=== PATIENT | male | born 1950 | race Native Hawaiian/Other Pacific Islander ===

== ENCOUNTER 2019-02-02 10:53 | Inpatient (IN) ==
--- NOTE | 2019-02-02 11:30 | Emergency Department Note ---
Wound/Laceration HPI - General Chief Complaint: Wound/Laceration Stated Complaint: left foot wound, right foot wound, poss. gangrene Time Seen by Provider: 02/02/19 11:04 Source: patient Mode of arrival: wheelchair Limitations: no limitations - History of Present Illness HPI Narrative: Patient's [id number], his care provider, states that today he has been having some increased weakness he has been unable to get out of his wheelchair bed where he normally is able to help with the transfers. He was seen in wound care with some low blood pressures was referred over by Dr. Holliday for evaluation. Patient states he has been having some increased weakness over the past several days. There are no localizing signs. Denies any chest pain denies shortness of breath he is not having any orthopnea but states there is been some weight gain and some increased edema to his lower extremities. He does have a history of peripheral vascular disease and has just recently stopped smoking has a [id number] history of tobacco. He has been seen in wound care on a weekly basis and his left great toe has black and bluish discolorations.. Current tempe rature is 96.1 her pulse is 68 respirations are 18 blood pressure 111/74 pulse ox is 97% rates the pain is an 10 - Related Data Home Medications Medication Instructions Recorded Confirmed Aspirin [Daja Chewable Aspirin] 81 mg PO DAILY 10/23/18 12/24/18 Atorvastatin [Lipitor] 40 mg PO BID 10/23/18 12/24/18 Digoxin [Lanoxin] 125 mcg PO DAILY 10/23/18 12/24/18 Furosemide [Lasix] 20 mg PO DAILY 10/23/18 12/24/18 Furosemide [Lasix] 40 mg PO DAILY 10/23/18 12/24/18 Levothyroxine [Synthroid] 50 mcg PO DAILY 10/23/18 12/24/18 Lisinopril [Zestril] 2.5 mg PO DAILY 10/23/18 12/24/18 Melatonin [Melatonin 3Mg Tablet] 3 mg PO DAILY 10/23/18 12/24/18 Metoprolol Succinate [Toprol Xl] 25 mg PO BID 10/23/18 12/24/18 Metoprolol Tartrate [Lopressor] 12.5 mg PO BID 10/23/18 12/24/18 Mirtazapine 0.5 tablet PO DAILY 10/23/18 12/24/18 Sennosides/Docusate Sodium [Senna 1 tablet PO DAILY 10/23/18 12/24/18 Plus Tablet] Spironolactone [Aldactone] 25 mg PO DAILY 10/23/18 12/24/18 metFORMIN [Glucophage] 500 mg PO BID 10/23/18 12/24/18 Clopidogrel Bisulfate [Plavix] 75 mg PO DAILY 12/10/18 12/24/18 Dabigatran Etexilate Mesylate 150 mg PO BID 12/10/18 12/24/18 [Pradaxa] Previous Rx's Medication Instructions Recorded Polyethylene Glycol 3350 [Miralax] 17 gm PO DAILY #30 packet 10/27/18 oxyCODONE/APAP [Percocet 5-325 mg] 1 tab PO Q6HP PRN #30 tab 01/01/19 Allergies Allergy/AdvReac Type Severity Reaction Status Date / Time No Known Drug Allergies Allergy Verified 02/02/19 10:57 Review of Systems All systems ED: reviewed and negative except as stated. Constitutional: Denies: fever, chills Cardiovascular: Reports: dyspnea on exertion. Denies: chest pain, palpitations Respiratory: Reports: shortness of breath. Denies: cough Gastrointestinal: Denies: abdominal pain, nausea Genitourinary: Denies: dysuria, frequency, urgency Musculoskeletal: Denies: back pain, joint swelling Integumentary: Denies: rash Neurological: Denies: headache Psychiatric: Denies: anxiety Endocrine: Denies: fatigue Hematological/Lymphatic: Denies: easy bleeding Allergic/Immunologic: Denies: facial swelling Past Medical History - Past Medical History [facility] Narrative: All Active Problems Hyperglycemia due to type 2 diabetes mellitus (Acute) Fecal impaction in rectum (Acute) Constipation (Acute) Knee effusion, right (Acute) Skin graft (allograft) (autograft) failure (Acute) Complication of skin graft (Acute) Bleeding from wound (Acute) Medical history: Reports: CVA, DM Surgical history ED: Reports: pacemaker/AICD, other (Stent in right leg Dr. Piedra 1 year ago) - Social History smoking status: Former smoker Alcohol use: Reports: None Drug use: Reports: none Physical Exam Limitations: no limitations General appearance: alert, anxious Head: atraumatic, normocephalic Eye: Present: normal appearance, PERRL ENT: normal exam, normal oropharynx, mucous membranes moist Neck: Present: normal inspection, full ROM. Absent: trachea midline Chest: Present: normal inspection. Absent: symmetric chest wall rise, tenderness Respiratory: Present: normal lung sounds bilaterally. Absent: respiratory distress, rales/crackles Cardiovascular: Present: regular rate, normal rhythm. Absent: bradycardia, tachycardia Abdominal: Present: soft. Absent: distention Extremities: Present: pedal edema, other (Black and bluish discoloration of the right great toe) Hip/Pelvis: Present: normal inspection, full ROM Upper leg: Present: normal inspection, full ROM Knee: Present: normal inspection, full ROM Lower leg: Present: ecchymosis, other (Scars from previous wounds ) Ankle: Present: normal inspection, full ROM Foot/toe: Present: tenderness, ecchymosis (Right great toe) Course Vital Signs Temperature 96.1 F L 02/02/19 10:53 Pulse Rate 68 02/02/19 10:53 Respiratory Rate 18 02/02/19 10:53 Blood Pressure 111/74 02/02/19 10:53 Pulse Oximetry (%) 97 02/02/19 10:53 Temperature 96.1 F L 02/02/19 10:53 Pulse Rate 67 02/02/19 14:30 Respiratory Rate 19 02/02/19 15:00 Blood Pressure 74/46 02/02/19 15:00 Pulse Oximetry (%) 100 02/02/19 15:00 Wound/Laceration - [facility] Narrative Medical decision making narrative: White counts 10,800 hemoglobin 10.5 hematocrit 38.876 6 bands and 17 lymphocytes lactic acid elevated at 2.2 BUN was elevated at 42 with a creatinine 1.5 the potassium is 6.21 was 0.1 and the BNP is 29,000 687. Patient consulted with Dr. Cortés on patient to be admitted. We have started him on vancomycin his proBNP was markedly elevated at 29,000 - Lab Data Result diagrams: 02/02/19 13:13 02/02/19 13:13 Lab Results 02/02/19 02/02/19 02/02/19 Range/Units 13:13 13:13 13:13 WBC 10.8 (4.5-11.0) K/mcL RBC 4.03 L (4.50-5.90) M/mcL Hgb 10.5 L (13.5-16.5) g/dL Hct 32.8 L (41.0-55.0) % MCV 81.4 (80.0-100.0) fL MCH 26.1 (26.0-34.0) pg MCHC 32.0 (31.0-36.0) g/dL RDW 21.2 H (11.5-14.5) % Plt Count 411 (140-440) K/mcL MPV 9.7 (7.4-10.4) fL Total Counted 100 Seg Neutrophils % 70 (38-78) % Band Neutrophils % 6 (0-10) % Lymphocytes % 17 (15-49) % Monocytes % (Manual) 7 (1-12) % Nucleated RBCs 1 H (0-0) % Platelet Estimate Normal (NORMAL) RBC Morphology Abnormal (NORMAL) Polychromasia 1+ A (NONE SEEN) Poikilocytosis 2+ A (NONE SEEN) Anisocytosis 2+ A (NONE SEEN) Acanthocytes (Spur) 4+ A (NONE SEEN) RBC Fragments 2+ A (NONE SEEN) VBG Lactic Acid 2.2 H (0.5-2.0) mmol/L Sodium 130 L (133-145) mmol/L Potassium 6.2 H* (3.3-5.1) mmol/L Chloride 97 (96-108) mmol/L Carbon Dioxide 20 L (22-30) mmol/L Anion Gap 13.0 (8-16) BUN 42 H (8-23) mg/dl Creatinine 1.5 H (0.7-1.2) mg/dl GFR Calculation 47 Glucose 107 H (70-105) mg/dL Calcium 8.5 L (8.6-10.4) mg/dl Total Bilirubin 1.7 H (0.0-1.0) mg/dL AST 51 H (0-37) U/l ALT 223 H (0-40) U/l Alkaline Phosphatase 93 (39-117) U/L Total Creatine Kinase 72 (24-195) IU/L CK-MB (CK-2) 3.4 (0-4.9) ng/ml Myoglobin 72 (28-72) ng/ml Troponin T (0-0.03) ng/ml NT-Pro-B Natriuret Pep (0-125) pg/ml Total Protein 6.2 (5.9-8.4) gm/dL Albumin 2.9 L (3.2-5.2) gm/dL Globulin 3.3 (2.2-3.7) gm/dL Albumin/Globulin Ratio 0.9 L (1.0-2.3) Procalcitonin (<0.10) ng/mL Urine Color Urine Appearance Urine pH (5.0-9.0) Ur Specific Roberts (1.000-1.035) Urine Protein (NEG) mg/dL Urine Glucose (UA) (NEG) mg/dL Urine Ketones (NEG) mg/dL Urine Occult Blood (<0.03) mg/dL Urine Nitrate (NEG) Urine Bilirubin (NEG) mg/dL Urine Urobilinogen (NEG) mg/dL Ur Leukocyte Esterase (NEG) /uL Urine RBC (0-1) /hpf Urine WBC (0-4) /hpf Ur Squamous Epith Cells (0-4) /hpf Amorphous Crystals (0) /hpf Urine Bacteria (0) /hpf Hyaline Casts (0-2) /lpf Granular Casts (0) /lpf Ur Culture Indicated? 02/02/19 02/02/19 02/02/19 Range/Units 13:13 13:13 13:13 WBC (4.5-11.0) K/mcL RBC (4.50-5.90) M/mcL Hgb (13.5-16.5) g/dL Hct (41.0-55.0) % MCV (80.0-100.0) fL MCH (26.0-34.0) pg MCHC (31.0-36.0) g/dL RDW (11.5-14.5) % Plt Count (140-440) K/mcL MPV (7.4-10.4) fL Total Counted Seg Neutrophils % (38-78) % Band Neutrophils % (0-10) % Lymphocytes % (15-49) % Monocytes % (Manual) (1-12) % Nucleated RBCs (0-0) % Platelet Estimate (NORMAL) RBC Morphology (NORMAL) Polychromasia (NONE SEEN) Poikilocytosis (NONE SEEN) Anisocytosis (NONE SEEN) Acanthocytes (Spur) (NONE SEEN) RBC Fragments (NONE SEEN) VBG Lactic Acid (0.5-2.0) mmol/L Sodium (133-145) mmol/L Potassium (3.3-5.1) mmol/L Chloride (96-108) mmol/L Carbon Dioxide (22-30) mmol/L Anion Gap (8-16) BUN (8-23) mg/dl Creatinine (0.7-1.2) mg/dl GFR Calculation Glucose (70-105) mg/dL Calcium (8.6-10.4) mg/dl Total Bilirubin (0.0-1.0) mg/dL AST (0-37) U/l ALT (0-40) U/l Alkaline Phosphatase (39-117) U/L Total Creatine Kinase (24-195) IU/L CK-MB (CK-2) (0-4.9) ng/ml Myoglobin (28-72) ng/ml Troponin T 0.10 H* (0-0.03) ng/ml NT-Pro-B Natriuret Pep (0-125) pg/ml Total Protein (5.9-8.4) gm/dL Albumin (3.2-5.2) gm/dL Globulin (2.2-3.7) gm/dL Albumin/Globulin Ratio (1.0-2.3) Procalcitonin 0.21 (<0.10) ng/mL Urine Color Yellow Urine Appearance Clear Urine pH 5.0 (5.0-9.0) Ur Specific Roberts 1.023 (1.000-1.035) Urine Protein Neg (NEG) mg/dL Urine Glucose (UA) Negative (NEG) mg/dL Urine Ketones Neg (NEG) mg/dL Urine Occult Blood Neg (<0.03) mg/dL Urine Nitrate Neg (NEG) Urine Bilirubin Neg (NEG) mg/dL Urine Urobilinogen 4.0 A (NEG) mg/dL Ur Leukocyte Esterase Neg (NEG) /uL Urine RBC 2 H (0-1) /hpf Urine WBC 3 (0-4) /hpf Ur Squamous Epith Cells 1 (0-4) /hpf Amorphous Crystals Few A (0) /hpf Urine Bacteria 0 (0) /hpf Hyaline Casts 66 H (0-2) /lpf Granular Casts 12 H (0) /lpf Ur Culture Indicated? No 02/02/19 Range/Units 13:38 WBC (4.5-11.0) K/mcL RBC (4.50-5.90) M/mcL Hgb (13.5-16.5) g/dL Hct (41.0-55.0) % MCV (80.0-100.0) fL MCH (26.0-34.0) pg MCHC (31.0-36.0) g/dL RDW (11.5-14.5) % Plt Count (140-440) K/mcL MPV (7.4-10.4) fL Total Counted Seg Neutrophils % (38-78) % Band Neutrophils % (0-10) % Lymphocytes % (15-49) % Monocytes % (Manual) (1-12) % Nucleated RBCs (0-0) % Platelet Estimate (NORMAL) RBC Morphology (NORMAL) Polychromasia (NONE SEEN) Poikilocytosis (NONE SEEN) Anisocytosis (NONE SEEN) Acanthocytes (Spur) (NONE SEEN) RBC Fragments (NONE SEEN) VBG Lactic Acid (0.5-2.0) mmol/L Sodium (133-145) mmol/L Potassium (3.3-5.1) mmol/L Chloride (96-108) mmol/L Carbon Dioxide (22-30) mmol/L Anion Gap (8-16) BUN (8-23) mg/dl Creatinine (0.7-1.2) mg/dl GFR Calculation Glucose (70-105) mg/dL Calcium (8.6-10.4) mg/dl Total Bilirubin (0.0-1.0) mg/dL AST (0-37) U/l ALT (0-40) U/l Alkaline Phosphatase (39-117) U/L Total Creatine Kinase (24-195) IU/L CK-MB (CK-2) 3.5 (0-4.9) ng/ml Myoglobin (28-72) ng/ml Troponin T (0-0.03) ng/ml NT-Pro-B Natriuret Pep 83541.0 H (0-125) pg/ml Total Protein (5.9-8.4) gm/dL Albumin (3.2-5.2) gm/dL Globulin (2.2-3.7) gm/dL Albumin/Globulin Ratio (1.0-2.3) Procalcitonin (<0.10) ng/mL Urine Color Urine Appearance Urine pH (5.0-9.0) Ur Specific Roberts (1.000-1.035) Urine Protein (NEG) mg/dL Urine Glucose (UA) (NEG) mg/dL Urine Ketones (NEG) mg/dL Urine Occult Blood (<0.03) mg/dL Urine Nitrate (NEG) Urine Bilirubin (NEG) mg/dL Urine Urobilinogen (NEG) mg/dL Ur Leukocyte Esterase (NEG) /uL Urine RBC (0-1) /hpf Urine WBC (0-4) /hpf Ur Squamous Epith Cells (0-4) /hpf Amorphous Crystals (0) /hpf Urine Bacteria (0) /hpf Hyaline Casts (0-2) /lpf Granular Casts (0) /lpf Ur Culture Indicated? Disposition Pt seen by CLASSIFICATION ANALYST/PA only: No Clinical Impression: CHF (congestive heart failure), Sepsis associated hypotension, Renal failure Disposition: Xfer As Inpt ([facility]) Condition: Fair Referrals: Geovanna De Santiago ARNP [Primary Care Provider] -
--- NOTE | 2019-02-02 12:23 | XRay Report ---
CLINICAL INFORMATION: Shortness of breath COMPARISON: 12/10/2018 FINDINGS: Implantable cardioverter defibrillator is in satisfactory position without wire breakage. The heart is moderately enlarged - slightly increased. Mediastinum is unremarkable. Pulmonary vessels are now mildly distended and there is minimal interstitial edema. Mild airspace disease in the right base is either atypical edema or infiltrate. IMPRESSION: Mild CHF Mild right basilar airspace disease likely atypical edema or superimposed infiltrate. Consider two-view follow-up chest x-ray following diuretic trial to restudy the right base for infiltrate Interpreted and Authenticated by: Max Wright 02/02/19
--- NOTE | 2019-02-02 12:28 | XRay Report ---
CLINICAL INFORMATION: wound COMPARISON: None. FINDINGS: No radiopaque foreign body identified in the soft tissues. There is mild soft tissue swelling in the forefoot. Mild hallux valgus and metatarsus adductus deformities noted. Joint spaces are normal with alignment without arthritic change. No fracture or focal osseous abnormality. Minor ossification of the Achilles tendon insertion on the calcaneus IMPRESSION: No posttraumatic change. Chronic findings as as described Interpreted and Authenticated by: Max Wright 02/02/19
[2019-02-02] MEDS ORDERED: FUROSEMIDE 40 MG/4 ML VIAL IV ONE (12:29)
[2019-02-02 13:43] LABS: Appearance,Urine CLEAR; Bacteria,Urine 0 /hpf (0); Bilirubin,Urine NEG (NEG); Color,Urine YELLOW; Glucose,Urine (UA) NEGATIVE (NEG); Leukocyte Esterase,Urine NEG /uL (NEG); Protein,Urine NEG (NEG); Specific Gravity,Urine 1.023 (1.000-1.035); Urine Amorphous Crystals FEW /hpf (0); Urine Blood NEG mg/dL (<0.03); Urine Granular Cast 12 /lpf (0); Urine Hyaline Cast 66 /lpf (0-2); Urine RBC 2 /hpf (0-1); Urine Squamous Epithelial Cell 1 /hpf (0-4); Urine WBC 3 /hpf (0-4)
[2019-02-02 14:07] LABS: Mean Cell Volume 81.4 fL (80.0-100.0); Platelet Count 411 K/mcL (140-440); RBC 4.03 M/mcL (4.50-5.90); Red Cell Distribution Width 21.2 % (11.5-14.5)
[2019-02-02] MEDS ORDERED: 0.9 % SODIUM CHLORIDE 500 ML IV ONE (14:14)
[2019-02-02] MEDS ORDERED: VANCOMYCIN 1,000 MG in 0.9 % SODIUM CHLORIDE 250 ML IV ONE (14:28)
[2019-02-02 14:33] LABS: ALT/SGPT 223 U/l (0-40); Albumin 2.9 gm/dL (3.2-5.2); Albumin/Globulin Ratio 0.9 (1.0-2.3); Alkaline Phosphatase 93 U/L (39-117); Blood Urea Nitrogen 42 mg/dl (8-23); Creatine Kinase 72 IU/L (24-195); Creatine Kinase MB 3.4 ng/ml (0-4.9); Myoglobin 72 ng/ml (28-72)
[2019-02-02 14:46] LABS: Anisocytosis 2+ (NONE SEEN); Band Neutrophils % 6 % (0-10); Lymphocytes % 17 % (15-49); Monocytes % (Manual) 7 % (1-12); Platelet Estimate NORMAL (NORMAL); RBC Morphology ABNORMAL (NORMAL); Segmented Neutrophils % 70 % (38-78)
[2019-02-02 14:49] LABS: Creatine Kinase MB 3.5 ng/ml (0-4.9)
--- NOTE | 2019-02-02 15:11 | Internal Med History&Physical ---
Medical - H&P: [facility] Patient information: Note initiated : 02/02/19 at 3:09 pm Service Date, if different from initiated Date: [] Patient: Randy Ramirez a 69 y/o M admitted on for left foot wound, right foot wound, poss. gangrene. Chief Complaint: [] Chief complaint: Weakness, Left big toe gangrene History of present illness: Mr. Ramirez is a 69 year old M with a history of atrial fibrillation/PVD /CVA/chronic kidney disease and insulin-dependent diabetes and chronic lower extremity wounds wheelchair dependent presents to the ER with his [id number] and brother with worsening pain and right big toe gangrenous changes. He has been following up with wound care for bilateral lower extremity wounds secondary to diabetes and PVD. During today's evaluation with concerns of low blood pressure and gangrenous change left great toe/sepsis he was directed from wound care for further evaluation. Patient underwent left great toenail removal at wound care clinic last week. Following procedure patient endorses that left toe has been turning purple with throbbing 8-10 out of 10 pain. During this time he has gotten progressively more weak fatigued and unable to function. He denies recent changes in medications. Initial workup in the ER was consistent with blood pressure on 70's, consistent with cardiogenic shock with pulmonary edema on chest imaging. Patient was s tarted on antibiotic coverage/diuretics however due to drop in blood pressure he was started on dobutamine. Subsequently hospitalist service was consulted. Initial EKG was unremarkable, stat troponin 0.10. Patient denies active chest pain At the time evaluation patient is alert oriented. He is able to answer most questions. Denies chest pain diaphoresis. He endorsed a history as above Review of systems 10 point review systems was performed and is negative except for what is discussed above Medical - H&P: PMH Medical history: NYHA class III systolic heart failure with last EF 30% as of December 2018 History of peripheral vascular disease DM type II History of CVA hypertension Hyperlipidemia AICD Anxiety disorder Lower extremity diabetic/peripheral vascular foot wounds Chronic pain COPD Anticoagulation Hypothyroidism Surgical history: Back surgery Right knee replacement AICD placement Pertinent family history: Coronary artery disease mother Hypertension both parents Chronic kidney disease Parents Rheumatoid arthritis mother Social history: quit smoking 30 yrs ago History of alcoholism Medical - H&P: Meds Home Medications Medication Instructions Recorded Confirmed Type Atorvastatin [Lipitor] 80 mg PO HS 10/23/18 02/02/19 History Digoxin [Lanoxin] 125 mcg PO DAILY 10/23/18 02/02/19 History Furosemide [Lasix] 20 mg PO DAILY 10/23/18 02/02/19 History Furosemide [Lasix] 40 mg PO DAILY 10/23/18 02/02/19 History Levothyroxine [Synthroid] 50 mcg PO DAILY 10/23/18 02/02/19 History Lisinopril [Zestril] 2.5 mg PO DAILY 10/23/18 02/02/19 History Metoprolol Succinate [Toprol Xl] 25 mg PO DAILY 10/23/18 02/02/19 History Mirtazapine 7.5 mg PO HS 10/23/18 02/02/19 History metFORMIN [Glucophage] 500 mg PO BID 10/23/18 02/02/19 History Polyethylene Glycol 3350 [Miralax] 17 gm PO DAILY #30 packet 10/27/18 02/02/19 Rx Clopidogrel Bisulfate [Plavix] 75 mg PO DAILY 12/10/18 02/02/19 History Dabigatran Etexilate Mesylate 150 mg PO BID 12/10/18 02/02/19 History [Pradaxa] oxyCODONE/APAP [Percocet 5-325 mg] 1 tab PO Q6HP PRN #30 tab 01/01/19 02/02/19 Rx Albuterol Sulfate [Ventolin] 2 puff INH Q4HP PRN 02/02/19 02/02/19 History Lubiprostone [Amitiza] 8 mcg PO BID 02/02/19 02/02/19 History Oxandrolone 10 mg PO DAILY 02/02/19 02/02/19 History Allergies Allergy/AdvReac Type Severity Reaction Status Date / Time No Known Drug Allergies Allergy Verified 02/02/19 10:57 Medical - H&P: Exam - Constitutional Vitals: Temp Pulse Resp BP Pulse Ox 96.1 F L 67 19 74/46 100 02/02/19 10:53 02/02/19 14:30 02/02/19 15:00 02/02/19 15:00 02/02/19 15:00 Exam: Fatigued and lethargic No anxiety Head normocephalic Oral cavity dry No ear or nose discharge IV movements symmetrical Neck no lymphadenopathy S1 and S2 irregular rhythm tachycardia Diminished breath sounds bases Abdomen soft nondistended Lower extremity bilateral cold clammy skin with loss of hair Gangrenous changes left toe/right third toe Lymphedema noted Neuro nonfocal Medical - H&P: Reslt - Labs CBC & Chem 7: 02/03/19 03:40 02/03/19 03:40 Labs: Short CBC 02/02/19 Range/Units 13:13 WBC 10.8 (4.5-11.0) K/mcL Hgb 10.5 L (13.5-16.5) g/dL Hct 32.8 L (41.0-55.0) % Plt Count 411 (140-440) K/mcL BMP 02/02/19 13:13 Sodium 130 L Potassium 6.2 H* Chloride 97 Carbon Dioxide 20 L BUN 42 H Creatinine 1.5 H Glucose 107 H Calcium 8.5 L Cardiac Enzymes 02/02/19 02/02/19 02/02/19 Range/Units 13:13 13:13 13:38 Total Creatine Kinase 72 (24-195) IU/L CK-MB (CK-2) 3.4 3.5 (0-4.9) ng/ml Troponin T 0.10 H* (0-0.03) ng/ml Liver Function 02/02/19 Range/Units 13:13 Total Bilirubin 1.7 H (0.0-1.0) mg/dL AST 51 H (0-37) U/l ALT 223 H (0-40) U/l Alkaline Phosphatase 93 (39-117) U/L Albumin 2.9 L (3.2-5.2) gm/dL Urine 02/02/19 Range/Units 13:13 Urine Color Yellow Urine Appearance Clear Urine pH 5.0 (5.0-9.0) Ur Specific Crawford 1.023 (1.000-1.035) Urine Protein Neg (NEG) mg/dL Urine Glucose (UA) Negative (NEG) mg/dL Medical - H&P: A/P (1) Heart failure, systolic, with acute decompensation Current visit: Yes Status: Acute * Cardiogenic shock with pul edema-last EF 30%. No AMI. Start dobutamine, cont inue digoxin/aggressive diuresis. Troponin 0.10, EKG no acute changes. * Left Great toe gangrene/Cellulitis-wound care/podiatry consult, Abx * Acute on chronic kidney disease-creatinine 1.5 * History of PVD/CAD continue Plavix/statin/digoxin/beta kaleb/YULISSA inhibitor(hold in light of shock) * Hypothyroidism continue thyroxine * History of hypertension-keep meds on hold until shock resolved * Chronic pain on oxycodone * History of COPD continue bronchodilators * Full code Plan * ICU admit for cardiogenic shock * Dobutamine/pressors if indicated/diuresis * Wound care consult * Central venous access Total time spent over 110 minutes including 70 minutes on history and physical an additional 40 minutes critical care time on management of cardiogenic shock
[2019-02-02] MEDS ORDERED: 0.9 % SODIUM CHLORIDE 250 ML IV ONE (15:18)
[2019-02-02] MEDS ORDERED: MAGNESIUM SULFATE 2 GM/50 ML BAG IV PRN (15:45)
[2019-02-02] MEDS ORDERED: VANCOMYCIN PER PHARMACY IV SCH (15:45)
[2019-02-02] MEDS ORDERED: DEXTROSE 50% 50 ML VIAL IV ONE (15:45)
[2019-02-02] MEDS ORDERED: INSULIN REGULAR, HUMAN 1 UNIT/0.01 ML UNIT IV ONE (15:45)
[2019-02-02] MEDS ORDERED: ACETAMINOPHEN 325 MG TABLET PO PRN (15:45)
[2019-02-02] MEDS ORDERED: DEXTROSE 31 GM ORAL.SUSP PO PRN (15:45)
[2019-02-02] MEDS ORDERED: ONDANSETRON 4 MG/2 ML VIAL IV PRN (15:45)
[2019-02-02] MEDS ORDERED: DEXTROSE 50% 50 ML VIAL IV PRN (15:45)
[2019-02-02 16:07] LABS: C-Reactive Protein 9.1 mg/dl (0.0-0.8)
[2019-02-02 16:17] LABS: Ferritin 245.7 ng/ml (30-400)
[2019-02-02] MEDS: SODIUM POLYSTYRENE SULFONATE 15 GM/60 ML SUSPENSION PO SCH ×2 (17:05→21:27)
[2019-02-02] MEDS: PIPERACILLIN SODIUM/TAZOBACTAM 3.375 GM in DEXTROSE 5% IN WATER 50 ML IV SCH ×2 (17:06→21:27)
[2019-02-02] MEDS: INSULIN LISPRO 1 UNIT/0.01 ML UNIT SQ SCH ×2 (17:07→22:09)
[2019-02-02] MEDS: FUROSEMIDE 40 MG/4 ML VIAL IV SCH ×2 (18:13→19:29)
[2019-02-02] MEDS: VANCOMYCIN 1,500 MG in 0.9 % SODIUM CHLORIDE 500 ML IV SCH ×2 (18:13→18:50)
--- NOTE | 2019-02-02 18:48 | General Surgery Consult Note ---
History of Present Illness Patient information: Note initiated : 02/02/19 at 6:41 pm Service Date, if different from initiated Date: [] Patient: Randy Ramirez 69 y/o M admitted on 02/02/19 for left foot wound, right foot wound, poss. gangrene. Chief Complaint: [] Requesting physician: Adam Rossi (Wound Care ) History of present illness: I saw patient in ICU 120 / A along with Dr. Rossi and Nursing Staff. Admitted via ER after seen earlier in wound care clinic this morning. Patient is in CHF with cardiogenic shock and low flow state. He has chronically infected wounds of lower extremities, skin necrosis / dry gangrene LEFT great toe and open Right lateral malleolar grade 1 ulcer. There have been interval changes and new developments in his overall condition. Deteriorating wounds and clinical presentation, CHF changes needed referral to ER and for hospitalization. Medications and Allergies Home Medications Medication Instructions Recorded Confirmed Type Atorvastatin [Lipitor] 80 mg PO HS 10/23/18 02/02/19 History Digoxin [Lanoxin] 125 mcg PO DAILY 10/23/18 02/02/19 History Furosemide [Lasix] 20 mg PO DAILY 10/23/18 02/02/19 History Furosemide [Lasix] 40 mg PO DAILY 10/23/18 02/02/19 History Levothyroxine [Synthroid] 50 mcg PO DAILY 10/23/18 02/02/19 History Lisinopril [Zestril] 2.5 mg PO DAILY 10/23/18 02/02/19 History Metoprolol Succinate [Toprol Xl] 25 mg PO DAILY 10/23/18 02/02/19 History Mirtazapine 7.5 mg PO HS 10/23/18 02/02/19 History metFORMIN [Glucophage] 500 mg PO BID 10/23/18 02/02/19 History Polyethylene Glycol 3350 [Miralax] 17 gm PO DAILY #30 packet 10/27/18 02/02/19 Rx Clopidogrel Bisulfate [Plavix] 75 mg PO DAILY 12/10/18 02/02/19 History Dabigatran Etexilate Mesylate 150 mg PO BID 12/10/18 02/02/19 History [Pradaxa] oxyCODONE/APAP [Percocet 5-325 mg] 1 tab PO Q6HP PRN #30 tab 01/01/19 02/02/19 Rx Albuterol Sulfate [Ventolin] 2 puff INH Q4HP PRN 02/02/19 02/02/19 History Lubiprostone [Amitiza] 8 mcg PO BID 02/02/19 02/02/19 History Oxandrolone 10 mg PO DAILY 02/02/19 02/02/19 History Allergies Allergy/AdvReac Type Severity Reaction Status Date / Time No Known Drug Allergies Allergy Verified 02/02/19 10:57 Exam Temp Pulse Resp BP Pulse Ox 97.5 F 67 18 102/77 96 02/02/19 16:00 02/02/19 15:40 02/02/19 18:09 02/02/19 18:00 02/02/19 18:00 - General physical appearance moderate distress, other (Aches and pains all over. ) - Eyes PERRL, other (Symmetrical edematous eyelids.) - ENT normal pinna, normal nares, normal mucosa, no congestion - Head Head exam IM: Present: atraumatic, normocephalic - Neck trachea midline, no venous distension - Cardiovascular Cardiovascular exam IM: Present: irregular rhythm - Respiratory normal respiratory effort, other (Dminished air entry lung bases) - Abdomen Abdomen: Present: soft, non tender, bowel sounds - Genitourinary Present: normal penis with no external lesions, other (Lyons catheter draining clear urine) - Integumentary Present: other (Multiple grade one skin tears both fore arms. Open wound Right lateral malleolus pressure ulcer and right thigh skin graft donor site. SKin and sub cutnaneous necrosis, dry gangrene LEFT great toe, s/p toe nail debridement in past. ) - Neurologic Present: other (Moves all extremities. No localizing neurological deficits. ) - Musculoskeletal Present: other (Wheel chair bound) - Psychiatric Present: oriented to time, oriented to person, oriented to place, speech is normal, other (ANXIOUS) Results - Labs 02/03/19 03:40 02/03/19 03:40 Abnormal lab results 02/02/19 02/02/19 02/02/19 Range/Units 13:13 13:13 13:13 RBC 4.03 L (4.50-5.90) M/mcL Hgb 10.5 L (13.5-16.5) g/dL Hct 32.8 L (41.0-55.0) % RDW 21.2 H (11.5-14.5) % Nucleated RBCs 1 H (0-0) % Polychromasia 1+ A (NONE SEEN) Poikilocytosis 2+ A (NONE SEEN) Anisocytosis 2+ A (NONE SEEN) Acanthocytes (Spur) 4+ A (NONE SEEN) RBC Fragments 2+ A (NONE SEEN) VBG Lactic Acid 2.2 H (0.5-2.0) mmol/L Sodium 130 L (133-145) mmol/L Potassium 6.2 H* (3.3-5.1) mmol/L Carbon Dioxide 20 L (22-30) mmol/L BUN 42 H (8-23) mg/dl Creatinine 1.5 H (0.7-1.2) mg/dl Glucose 107 H (70-105) mg/dL Calcium 8.5 L (8.6-10.4) mg/dl Total Bilirubin 1.7 H (0.0-1.0) mg/dL AST 51 H (0-37) U/l ALT 223 H (0-40) U/l Troponin T (0-0.03) ng/ml C-Reactive Protein (0.0-0.8) mg/dl NT-Pro-B Natriuret Pep (0-125) pg/ml Albumin 2.9 L (3.2-5.2) gm/dL Albumin/Globulin Ratio 0.9 L (1.0-2.3) Urine Urobilinogen (NEG) mg/dL Urine RBC (0-1) /hpf Amorphous Crystals (0) /hpf Hyaline Casts (0-2) /lpf Granular Casts (0) /lpf 02/02/19 02/02/19 02/02/19 Range/Units 13:13 13:13 13:13 RBC (4.50-5.90) M/mcL Hgb (13.5-16.5) g/dL Hct (41.0-55.0) % RDW (11.5-14.5) % Nucleated RBCs (0-0) % Polychromasia (NONE SEEN) Poikilocytosis (NONE SEEN) Anisocytosis (NONE SEEN) Acanthocytes (Spur) (NONE SEEN) RBC Fragments (NONE SEEN) VBG Lactic Acid (0.5-2.0) mmol/L Sodium (133-145) mmol/L Potassium (3.3-5.1) mmol/L Carbon Dioxide (22-30) mmol/L BUN (8-23) mg/dl Creatinine (0.7-1.2) mg/dl Glucose (70-105) mg/dL Calcium (8.6-10.4) mg/dl Total Bilirubin (0.0-1.0) mg/dL AST (0-37) U/l ALT (0-40) U/l Troponin T 0.10 H* (0-0.03) ng/ml C-Reactive Protein 9.1 H (0.0-0.8) mg/dl NT-Pro-B Natriuret Pep (0-125) pg/ml Albumin (3.2-5.2) gm/dL Albumin/Globulin Ratio (1.0-2.3) Urine Urobilinogen 4.0 A (NEG) mg/dL Urine RBC 2 H (0-1) /hpf Amorphous Crystals Few A (0) /hpf Hyaline Casts 66 H (0-2) /lpf Granular Casts 12 H (0) /lpf 02/02/19 Range/Units 13:38 RBC (4.50-5.90) M/mcL Hgb (13.5-16.5) g/dL Hct (41.0-55.0) % RDW (11.5-14.5) % Nucleated RBCs (0-0) % Polychromasia (NONE SEEN) Poikilocytosis (NONE SEEN) Anisocytosis (NONE SEEN) Acanthocytes (Spur) (NONE SEEN) RBC Fragments (NONE SEEN) VBG Lactic Acid (0.5-2.0) mmol/L Sodium (133-145) mmol/L Potassium (3.3-5.1) mmol/L Carbon Dioxide (22-30) mmol/L BUN (8-23) mg/dl Creatinine (0.7-1.2) mg/dl Glucose (70-105) mg/dL Calcium (8.6-10.4) mg/dl Total Bilirubin (0.0-1.0) mg/dL AST (0-37) U/l ALT (0-40) U/l Troponin T (0-0.03) ng/ml C-Reactive Protein (0.0-0.8) mg/dl NT-Pro-B Natriuret Pep 96917.0 H (0-125) pg/ml Albumin (3.2-5.2) gm/dL Albumin/Globulin Ratio (1.0-2.3) Urine Urobilinogen (NEG) mg/dL Urine RBC (0-1) /hpf Amorphous Crystals (0) /hpf Hyaline Casts (0-2) /lpf Granular Casts (0) /lpf Diabetes panel 02/02/19 Range/Units 13:13 Sodium 130 L (133-145) mmol/L Potassium 6.2 H* (3.3-5.1) mmol/L Chloride 97 (96-108) mmol/L Carbon Dioxide 20 L (22-30) mmol/L BUN 42 H (8-23) mg/dl Creatinine 1.5 H (0.7-1.2) mg/dl Glucose 107 H (70-105) mg/dL Calcium 8.5 L (8.6-10.4) mg/dl AST 51 H (0-37) U/l ALT 223 H (0-40) U/l Alkaline Phosphatase 93 (39-117) U/L Total Protein 6.2 (5.9-8.4) gm/dL Albumin 2.9 L (3.2-5.2) gm/dL Calcium panel 02/02/19 Range/Units 13:13 Calcium 8.5 L (8.6-10.4) mg/dl Albumin 2.9 L (3.2-5.2) gm/dL Pituitary panel 02/02/19 Range/Units 13:13 Sodium 130 L (133-145) mmol/L Potassium 6.2 H* (3.3-5.1) mmol/L Chloride 97 (96-108) mmol/L Carbon Dioxide 20 L (22-30) mmol/L BUN 42 H (8-23) mg/dl Creatinine 1.5 H (0.7-1.2) mg/dl Glucose 107 H (70-105) mg/dL Calcium 8.5 L (8.6-10.4) mg/dl Adrenal panel 02/02/19 Range/Units 13:13 Sodium 130 L (133-145) mmol/L Potassium 6.2 H* (3.3-5.1) mmol/L Chloride 97 (96-108) mmol/L Carbon Dioxide 20 L (22-30) mmol/L BUN 42 H (8-23) mg/dl Creatinine 1.5 H (0.7-1.2) mg/dl Glucose 107 H (70-105) mg/dL Calcium 8.5 L (8.6-10.4) mg/dl Total Bilirubin 1.7 H (0.0-1.0) mg/dL AST 51 H (0-37) U/l ALT 223 H (0-40) U/l Alkaline Phosphatase 93 (39-117) U/L Total Protein 6.2 (5.9-8.4) gm/dL Albumin 2.9 L (3.2-5.2) gm/dL All other labs normal. Assessment and Plan (1) Dry gangrene See Wound Care orders. Following patient along with hospitalist. Status: Chronic Priority: Low (2) Hyperglycemia due to type 2 diabetes mellitus Status: Acute Priority: Medium Qualifiers: Diabetes mellitus superintendent container terminal insulin use: with skilled nursing use Qualified Code(s): E11.65 - Type 2 diabetes mellitus with hyperglycemia; Z79.4 - residential (current) use of insulin (3) Fecal impaction in rectum Status: Suspected Priority: Medium (4) Constipation Status: Chronic Priority: Medium Qualifiers: Constipation type: unspecified constipation type Qualified Code(s): K59.00 - Constipation, unspecified (5) Knee effusion, right Status: Chronic Priority: Low (6) Complication of skin graft Status: Acute (7) CHF (congestive heart failure) Status: Acute Priority: High Qualifiers: Heart failure type: combined systolic and diastolic Heart failure chronicity: acute on chronic Qualified Code(s): I50.43 - Acute on chronic combined systolic (congestive) and diastolic (congestive) heart failure
[2019-02-02] MEDS ORDERED: FUROSEMIDE 250 MG in 0.9 % SODIUM CHLORIDE 225 ML IV SCH (19:30)
[2019-02-02] MEDS ORDERED: 0.9 % SODIUM CHLORIDE 10 ML SYRINGE IV PRN (19:31)
--- NOTE | 2019-02-02 19:32 | XRay Report ---
CLINICAL INFORMATION: Central Line Placement COMPARISON: 02/02/2019 1122 hours FINDINGS: Moderate cardiomegaly is unchanged. Implanted cardioverter defibrillator remains in stable position. Right IJ central line tip overlies the SVC brachycephalic injunction. No complication from line placement. Pulmonary vessels show slight decrease in caliber, but remain mildly distended. No definite edema. Moderate patchy right basilar infiltrate has progressed IMPRESSION: Near complete resolution in CHF Moderate patchy right basilar infiltrate progressing New right IJ line in satisfactory position - no complication Interpreted and Authenticated by: Max Wright 02/02/19
[2019-02-02] MEDS ORDERED: ALBUTEROL SULFATE 1 PUFF INHALER INH PRN (20:02)
[2019-02-02] MEDS ORDERED: FUROSEMIDE 100 MG/10 ML VIAL IV ONE (20:28)
[2019-02-02] MEDS: SENNOSIDES/DOCUSATE SODIUM 1 TAB TABLET PO SCH (21:25)
[2019-02-02] MEDS: MIRTAZAPINE 15 MG TABLET PO SCH (21:25)
[2019-02-02] MEDS: ATORVASTATIN 20 MG TABLET PO SCH (21:25)
[2019-02-02] MEDS: DOCUSATE SODIUM 100 MG CAPSULE PO SCH (21:25)
[2019-02-02] MEDS: DABIGATRAN ETEXILATE MESYLATE 75 MG CAPSULE PO SCH (21:26)
[2019-02-02] MEDS: oxyCODONE/APAP 5/325MG TABLET PO PRN (21:26)
[2019-02-02] MEDS: 0.9 % SODIUM CHLORIDE 10 ML SYRINGE IV SCH ×2 (21:27)
[2019-02-02] MEDS: Lubiprostone [Amitiza] 8 MCG PO SCH (21:28)
[2019-02-03] MEDS: PIPERACILLIN SODIUM/TAZOBACTAM 3.375 GM in DEXTROSE 5% IN WATER 50 ML IV SCH ×5 (00:22→23:23)
[2019-02-03] MEDS: fentaNYL 100 MCG/2 ML VIAL IV PRN (00:24)
[2019-02-03] MEDS: VANCOMYCIN 1,500 MG in 0.9 % SODIUM CHLORIDE 500 ML IV SCH (01:18)
[2019-02-03] MEDS: 0.9 % SODIUM CHLORIDE 10 ML SYRINGE IV SCH ×5 (05:29→22:21)
[2019-02-03 05:41] LABS: Mean Cell Volume 81.4 fL (80.0-100.0); Mean Corpuscular HGB Conc 31.5 g/dL (31.0-36.0); Platelet Count 371 K/mcL (140-440); RBC 3.47 M/mcL (4.50-5.90); Red Cell Distribution Width 21.4 % (11.5-14.5)
[2019-02-03] MEDS: oxyCODONE/APAP 5/325MG TABLET PO PRN ×3 (06:09→20:29)
[2019-02-03 06:16] LABS: ALT/SGPT 147 U/l (0-40); Albumin 2.1 gm/dL (3.2-5.2); Albumin/Globulin Ratio 0.8 (1.0-2.3); Alkaline Phosphatase 75 U/L (39-117); Bilirubin,Direct 0.9 mg/dL (0.0-0.3); Blood Urea Nitrogen 38 mg/dl (8-23); Gamma Glutamyl Transpeptidase 49 U/L (8-61)
[2019-02-03] MEDS: DOBUTamine 250 MG in PREMIX 1 BAG IV ONE ×2 (06:58→09:52)
[2019-02-03] MEDS ORDERED: METOLAZONE 2.5 MG TABLET PO SCH (07:30)
[2019-02-03 07:49] LABS: Anisocytosis 2+ (NONE SEEN); Band Neutrophils % 4 % (0-10); Hypochromasia 1+ (NONE SEEN); Lymphocytes % 13 % (15-49); Monocytes % (Manual) 2 % (1-12); Platelet Estimate NORMAL (NORMAL); RBC Morphology ABNORM (NORMAL); Segmented Neutrophils % 81 % (38-78)
[2019-02-03] MEDS: INSULIN LISPRO 1 UNIT/0.01 ML UNIT SQ SCH ×4 (07:53→20:31)
[2019-02-03] MEDS ORDERED: FUROSEMIDE 250 MG in 0.9 % SODIUM CHLORIDE 225 ML IV PRN (08:00)
[2019-02-03] MEDS: DABIGATRAN ETEXILATE MESYLATE 75 MG CAPSULE PO SCH ×2 (09:43→20:29)
[2019-02-03] MEDS: CLOPIDOGREL 75 MG TABLET PO SCH (09:44)
[2019-02-03] MEDS: LEVOTHYROXINE 50 MCG TABLET PO SCH (09:44)
[2019-02-03] MEDS: sitaGLIPtin 100 MG TABLET PO SCH (09:44)
[2019-02-03] MEDS: MULTIVIT,THER IRON,CA,FA & MIN 1 TABLET PO SCH (09:44)
[2019-02-03] MEDS: BACITRACIN TOPICAL OINT 15 GM TUBE TOPICAL SCH ×2 (09:45→20:31)
[2019-02-03] MEDS: FUROSEMIDE 40 MG/4 ML VIAL IV SCH ×3 (09:45→22:00)
[2019-02-03] MEDS: METOPROLOL SUCCINATE 50 MG TAB.XL.24H PO SCH (09:45)
[2019-02-03] MEDS: POLYETHYLENE GLYCOL 3350 17 GM PACKET PO SCH (09:46)
[2019-02-03] MEDS: DOCUSATE SODIUM 100 MG CAPSULE PO SCH ×2 (09:46→20:28)
[2019-02-03] MEDS: Lubiprostone [Amitiza] 8 MCG PO SCH ×2 (09:47→20:31)
[2019-02-03] MEDS: OXANDROLONE 2.5 MG TABLET PO SCH (09:47)
[2019-02-03] MEDS ORDERED: VANCOMYCIN 1,500 MG in 0.9 % SODIUM CHLORIDE 500 ML IV SCH (10:00)
--- NOTE | 2019-02-03 10:04 | Procedure Note ---
Procedures - Central Line Placement Right IJ Date of Procedure: 02/03/19 Time out performed: Yes Patient placed on monitor/pulse ox: Yes MD prep: mask, sterile gown, sterile gloves, cap Central line prep: 2% Chlorhexidine scrub Local anesthesia used: lidocaine 1% Amount of anesthesia used (mls): 5 Ultrasound used for placement: Yes Central line lumen inserted: quad, 16 cm Post procedure: sutured in place, good blood return, all ports aspirated, flushed, capped, sterile dressing applied Post procedure x-ray: tip of catheter in good position, no pneumothorax seen Patient tolerated procedure: well, no complications Complications: none
--- NOTE | 2019-02-03 10:07 | Internal Med Progress Note ---
Medical - PN: Subj Patient information: Note initiated : 02/03/19 at 10:04 am Service Date, if different from initiated Date: [] Patient: Randy Ramirez a 69 y/o M admitted on 02/02/19 for left foot wound, right foot wound, poss. gangrene. Chief Complaint: [] Interval history: Mr. Ramirez is a 69 year old M with a history of atrial fibrillation/PVD /CVA/chronic kidney disease and insulin-dependent diabetes and chronic lower extremity wounds wheelchair dependent presents to the ER with his [id number] and brother with worsening pain and right big toe gangrenous changes. He has been following up with wound care for bilateral lower extremity wounds secondary to diabetes and PVD. During today's evaluation with concerns of low blood pressure and gangrenous change left great toe/sepsis he was directed from wound care for further evaluation. Patient underwent left great toenail removal at wound care clinic last week. Following procedure patient endorses that left toe has been turning purple with throbbing 8-10 out of 10 pain. During this time he has gotten progressively more weak fatigued and unable to function. He denies recent changes in medications. Initial workup in the ER was consistent with blood pressure on 70's, consistent with cardiogenic shock with pulmonary edema on chest imaging. Patient was started on antibiotic coverage/diuretics however due to drop in blood pressure he was started on dobutamine. Subsequently hospitalist service was consulted. Initial EKG was unremarkable, stat troponin 0.10. Patient denies active chest pain At the time evaluation patient is alert oriented. He is able to answer most questions. Denies chest pain diaphoresis. He endorsed a history as above 02/03- patient doing better than previous day. Did not respond to Lasix drip. Continue sequential nephron blockade with metolazone/Lasix. Continue dobutamine. Renal function improved creatinine 1.1 down from 1.5. Map at goal. Moderate bibasal infiltrates likely aspiration. Continue antibiotic coverage and Zosyn to cover for anaerobes as well as for cellulitis/gangrenous changes. Wound care on board. No family at bedside. Lymphedema improving - Constitutional Vitals: Vital Signs Temp Pulse Resp BP Pulse Ox 97.5 F 73 19 101/76 99 02/03/19 08:02 02/03/19 07:23 02/03/19 08:42 02/03/19 08:02 02/03/19 08:02 Period Temp Pulse Resp BP Sys/Jennings Pulse Ox Last 24 Hr 96.1 F-98.0 F 67-96 - 62-123/28-100 96-100 Intake and Output 02/02/19 02/03/19 02/03/19 21:59 05:59 13:59 Intake Total 8400 782 9506 Output Total 290 231 78 Balance 752 202 0581 Weight 183 lb Intake & Output: Intake & Output 02/02/19 02/03/19 02/03/19 21:59 05:59 13:59 Intake Total 0396 874 7730 Output Total 290 231 78 Balance 141 126 0122 Weight 183 lb Intake: Nourishment/Supplement quantity 360 (ml) IV 804 103 550 Sodium Chloride 0.9% 500 ml @ 500 Wide Open IV BOLUS ONE Rx#: [id number] Lasix 250 mg In Sodium Chloride 4 53 0.9% 225 ml @ 4 MG/HR 4 mls/hr IV Q24H [facility] Rx#:[id number] Zosyn 3.375 gm In Dextrose 5% 50 50 50 in Water 50 ml @ 100 mls/hr IV Q6H [facility] Rx#:[id number] Vancomycin 1,000 mg In Sodium 250 Chloride 0.9% 250 ml @ 250 mls/ hr IV ONCE ONE Rx#:[id number] Vancomycin 1,500 mg In Sodium 500 Chloride 0.9% 500 ml @ 333.3 mls/hr IV DAILY [facility] Rx#: [id number] Oral 360 650 Output: Urine Catheter Amount 290 231 78 Other: Meal Dinner Breakfast Percent of Meal Consumed 100% 75% Feeding Ability Assist with Tray Set Up Nourishment/Supplement name peaches Urine Appearance Clear Cloudy Cloudy Sediment Uretheral (Lyons) Clear Urine Color Dark Yellow Dark Jennie Tea Colored Blood Tinged Uretheral (Ylons) Dark Yellow Dark Jennie Urine Odor Normal Stool Size Copious Large Stool Color Brown Brown Stool Consistency Liquid Liquid # of times incontinent of 1 Bowels General appearance: no acute distress Exam: Alert and oriented diminished breath sounds bases Intermittent A. fib RVR Extensive ecchymosis/peripheral edema Multiple bilateral lower extremity wound/cellulitis with Left great toe gangrenous changes, right third toe ulceration Right heel ulcerated wound Medical - PN: Obj Da - Labs CBC & Chem 7: 02/03/19 03:40 02/03/19 03:40 Labs: Abnormal Lab Results 02/03/19 02/03/19 03 03:40 03:40 13:38 RBC 3.47 L Hgb 8.9 L Hct 28.2 L MCH 25.6 L RDW 21.4 H Seg Neutrophils % 81 H Lymphocytes % 13 L Nucleated RBCs RBC Morphology Abnorm A Polychromasia 1+ A Hypochromasia 1+ A Poikilocytosis Anisocytosis 2+ A Acanthocytes (Spur) 3+ A RBC Fragments 2+ A VBG Lactic Acid Sodium Potassium Carbon Dioxide 19 L BUN 38 H Creatinine Glucose Uric Acid 9.0 H Calcium 6.3 L Total Bilirubin 1.4 H Direct Bilirubin 0.9 H AST ALT 147 H Troponin T C-Reactive Protein NT-Pro-B Natriuret Pep 50334.0 H Total Protein 4.6 L Albumin 2.1 L Albumin/Globulin Ratio 0.8 L Urine Urobilinogen Urine RBC Amorphous Crystals Hyaline Casts Granular Casts 02/02/19 02/02/19 02/02/19 13:13 13:13 13:13 RBC Hgb Hct MCH RDW Seg Neutrophils % Lymphocytes % Nucleated RBCs RBC Morphology Polychromasia Hypochromasia Poikilocytosis Anisocytosis Acanthocytes (Spur) RBC Fragments VBG Lactic Acid Sodium Potassium Carbon Dioxide BUN Creatinine Glucose Uric Acid Calcium Total Bilirubin Direct Bilirubin AST ALT Troponin T 0.10 H* C-Reactive Protein 9.1 H NT-Pro-B Natriuret Pep Total Protein Albumin Albumin/Globulin Ratio Urine Urobilinogen 4.0 A Urine RBC 2 H Amorphous Crystals Few A Hyaline Casts 66 H Granular Casts 12 H 02/02/19 02/02/19 02/02/19 13:13 13:13 13:13 RBC 4.03 L Hgb 10.5 L Hct 32.8 L MCH RDW 21.2 H Seg Neutrophils % Lymphocytes % Nucleated RBCs 1 H RBC Morphology Polychromasia 1+ A Hypochromasia Poikilocytosis 2+ A Anisocytosis 2+ A Acanthocytes (Spur) 4+ A RBC Fragments 2+ A VBG Lactic Acid 2.2 H Sodium 130 L Potassium 6.2 H* Carbon Dioxide 20 L BUN 42 H Creatinine 1.5 H Glucose 107 H Uric Acid Calcium 8.5 L Total Bilirubin 1.7 H Direct Bilirubin AST 51 H ALT 223 H Troponin T C-Reactive Protein NT-Pro-B Natriuret Pep Total Protein Albumin 2.9 L Albumin/Globulin Ratio 0.9 L Urine Urobilinogen Urine RBC Amorphous Crystals Hyaline Casts Granular Casts Meds: Medications Acetaminophen (Tylenol) 650 mg PO Q4-6HP PRN PRN Reason: PAIN/FEVER > 101 Albuterol Sulfate (Ventolin) 2 puff INH Q4HP PRN PRN Reason: Bronchospasm Atorvastatin Calcium (Lipitor) 80 mg PO HS [facility] Last Admin: 02/02/19 21:25 Dose: 80 mg Documented by: Bacitracin (Bacitracin Topical Oint) 1 dose TOPICAL BID [facility] Last Admin: 02/03/19 09:45 Dose: 1 dose Documented by: Clopidogrel Bisulfate (Plavix) 75 mg PO DAILY [facility] Last Admin: 02/03/19 09:44 Dose: 75 mg Documented by: Dabigatran (Pradaxa) 150 mg PO BID [facility] Last Admin: 02/03/19 09:43 Dose: 150 mg Documented by: Dextrose (Dextrose 50%) 0 ml IV UD PRN PRN Reason: Hypoglycemia Diagnostic Test (Pha) (Accu-Chek) 1 each FS ACHS [facility] Last Admin: 02/03/19 07:53 Dose: 1 each Documented by: Digoxin (Lanoxin) 125 mcg PO DAILY@1400 [facility] Docusate Sodium (Colace) 100 mg PO BID [facility] Last Admin: 02/03/19 09:46 Dose: Not Given Documented by: Fentanyl (Sublimaze) 12.5 mcg IV Q4HP PRN PRN Reason: PAIN LEVEL > 6 Last Admin: 02/03/19 00:24 Dose: 12.5 mg Documented by: Furosemide (Lasix) 40 mg IV BIDD [facility] Last Admin: 02/03/19 09:45 Dose: 40 mg Documented by: Glucose (Insta-Glucose) 15 gm PO PRN PRN PRN Reason: Hypoglycemia Dobutamine HCl/Dextrose 250 mg (/ Premix) 250 mls @ 2.54 mls/hr IV .Q24H ONE; Protocol Stop: 02/03/19 15:16 Last Admin: 02/03/19 09:52 Dose: 0.5 mcg/kg/min, 2.54 mls/hr Documented by: Magnesium Sulfate (Magnesium Sulfate) 2 gm in 50 mls @ 50 mls/hr IV UD PRN PRN Reason: MG = or < 1.7 Last Admin: 02/03/19 07:53 Dose: 50 mls/hr Documented by: Piperacillin Sod/Tazobactam (Sod 3.375 gm/ Dextrose) 50 mls @ 100 mls/hr IV Q6H [facility] Last Infusion: 02/03/19 06:53 Dose: Infused Documented by: Furosemide 250 mg/ Sodium (Chloride) 250 mls @ 4 mls/hr IV Q24HP PRN; Protocol PRN Reason: Edema Vancomycin HCl 1,500 mg/ (Sodium Chloride) 500 mls @ 333.3 mls/hr IV Q24H [facility] Last Admin: 02/03/19 09:48 Dose: 333.3 mls/hr Documented by: Insulin Human Lispro (Humalog) 0 unit SQ ACHS [facility]; Protocol Last Admin: 02/03/19 07:53 Dose: 2 unit Documented by: Iron Carb/Multivit/Apprentice Lineman Third Step/Folic Acid (Multivitamin W/Minerals) 1 tab PO DAILY [facility] Last Admin: 02/03/19 09:44 Dose: 1 tab Documented by: Levothyroxine Sodium (Synthroid) 50 mcg PO ACB [facility] Last Admin: 02/03/19 09:44 Dose: 50 mcg Documented by: Metolazone (Zaroxolyn) 2.5 mg PO DAILY@0730 [facility] Last Admin: 02/03/19 09:10 Dose: 2.5 mg Documented by: Metoprolol Succinate (Toprol Xl) 25 mg PO DAILY [facility] Last Admin: 02/03/19 09:45 Dose: 25 mg Documented by: Mirtazapine (Remeron) 7.5 mg PO HS [facility] Last Admin: 02/02/19 21:25 Dose: 7.5 mg Documented by: Ondansetron HCl (Zofran) 4 mg IV Q4-6HP PRN PRN Reason: Nausea And Vomiting Oxandrolone (Oxandrin) 10 mg PO DAILY [facility] Last Admin: 02/03/19 09:47 Dose: 10 mg Documented by: Oxycodone/Acetaminophen (Percocet 5-325 Mg) 1 tab PO Q6HP PRN PRN Reason: Pain Last Admin: 02/03/19 06:09 Dose: 1 tab Documented by: Lubiprostone [ (Amitiza] 8 Mcg) 1 dose PO BID [facility] Last Admin: 02/03/19 09:47 Dose: Not Given Documented by: Polyethylene Glycol (Miralax) 17 gm PO DAILY [facility] Last Admin: 02/03/19 09:46 Dose: Not Given Documented by: Senna/Docusate Sodium (Senna Plus Tablet) 1 tab PO HS [facility] Last Admin: 02/02/19 21:25 Dose: 1 tab Documented by: Sitagliptin Phosphate (Januvia) 100 mg PO DAILY [facility] Last Admin: 02/03/19 09:44 Dose: 100 mg Documented by: Sodium Chloride (Saline Flush) 10 ml IV Q8 [facility] Last Admin: 02/03/19 05:29 Dose: 10 ml Documented by: Sodium Chloride (Saline Flush) 10 ml IV Q12 [facility] Last Admin: 02/03/19 09:47 Dose: 10 ml Documented by: Sodium Chloride (Saline Flush) 10 ml IV UD PRN PRN Reason: medications Vancomycin HCl (Vancomycin Per Pharmacy) 1 order IV UD [facility] Medical - PN: A/P - Time Spent With Patient Total time spent is greater than 50% in coordination of care (as documented) at patient's floor/unit and/or counseling patient: Greater than 35 minutes (critical care time) (1) Shock, cardiogenic Status: Acute Assessment and plan: * Cardiogenic shock with pulmonary edema-clinically improving. Continue sequential nephron blockade with Lasix and metolazone. Last EF 30%. No indication of ACS. Continue dobutamine, digoxin(check digoxin level) * Left Great toe gangrene/Cellulitis-wound care/podiatry consult, Abx * Bilateral lower lobe pneumonia-possible aspiration, continue empiric antibiotic coverage * Acute on chronic kidney disease-creatinine improved 1.1 * History of PVD/CAD continue Plavix/statin/digoxin/beta kaleb/YULISSA inhibitor(held in light of shock) * Hypothyroidism continue thyroxine * History of hypertension-keep meds on hold until shock resolved * Chronic pain on oxycodone * History of COPD continue bronchodilators * Full code Plan * Dobutamine * Digoxin level * Lasix metolazone * Broad antibiotic coverage * Wound care Current Visit: Yes Medical - PN: Qual - Stroke Symptom Onset Unknown: No - VTE Deep Vein Thrombosis/Pulmonary Embolism Present on Admission: No
[2019-02-03] MEDS ORDERED: DIGOXIN 125 MCG TABLET PO SCH (14:00)
--- NOTE | 2019-02-03 17:34 | General Surgery Progress Note ---
Subjective Patient reports: other Narrative: Note initiated : 02/03/19 at 5:32 pm Service Date, if different from initiated Date: [] Patient: Randy Ramirez 69 y/o M admitted on 02/02/19 for left foot wound, right foot wound, poss. gangrene. Chief Complaint: [] Patient seen this morning along with Terri RN, In Patient wound care nurse. Objective Temp Pulse Resp BP Pulse Ox 96.8 F L 88 16 102/76 100 02/03/19 14:00 02/03/19 16:11 02/03/19 16:11 02/03/19 16:00 02/03/19 16:11 AVSS. More alert and interactive. Pain well controlled and moved his bowels today. Responding to medical management. Wound care reviewed with nursing staff. - Additional Data Intake & Output - Last 24 hours: Intake & Output 02/01/19 02/02/19 02/03/19 02/04/19 05:59 05:59 05:59 05:59 Intake Total 1627 2101 Output Total 521 158 Balance 1106 1943 Weight 183 lb 183 lb - Labs 02/03/19 03:40 02/03/19 03:40 Diabetes panel 02/03/19 Range/Units 03:40 Sodium 135 (133-145) mmol/L Potassium 3.8 (3.3-5.1) mmol/L Chloride 108 (96-108) mmol/L Carbon Dioxide 19 L (22-30) mmol/L BUN 38 H (8-23) mg/dl Creatinine 1.1 (0.7-1.2) mg/dl Glucose 98 (70-105) mg/dL Calcium 6.3 L (8.6-10.4) mg/dl AST 25 (0-37) U/l ALT 147 H (0-40) U/l Alkaline Phosphatase 75 (39-117) U/L Total Protein 4.6 L (5.9-8.4) gm/dL Albumin 2.1 L (3.2-5.2) gm/dL Triglycerides 59 (<150) mg/dl Calcium panel 02/03/19 Range/Units 03:40 Calcium 6.3 L (8.6-10.4) mg/dl Phosphorus 3.0 (2.7-4.5) mg/dL Albumin 2.1 L (3.2-5.2) gm/dL Pituitary panel 02/03/19 Range/Units 03:40 Sodium 135 (133-145) mmol/L Potassium 3.8 (3.3-5.1) mmol/L Chloride 108 (96-108) mmol/L Carbon Dioxide 19 L (22-30) mmol/L BUN 38 H (8-23) mg/dl Creatinine 1.1 (0.7-1.2) mg/dl Glucose 98 (70-105) mg/dL Calcium 6.3 L (8.6-10.4) mg/dl Adrenal panel 02/03/19 Range/Units 03:40 Sodium 135 (133-145) mmol/L Potassium 3.8 (3.3-5.1) mmol/L Chloride 108 (96-108) mmol/L Carbon Dioxide 19 L (22-30) mmol/L BUN 38 H (8-23) mg/dl Creatinine 1.1 (0.7-1.2) mg/dl Glucose 98 (70-105) mg/dL Calcium 6.3 L (8.6-10.4) mg/dl Total Bilirubin 1.4 H (0.0-1.0) mg/dL AST 25 (0-37) U/l ALT 147 H (0-40) U/l Alkaline Phosphatase 75 (39-117) U/L Total Protein 4.6 L (5.9-8.4) gm/dL Albumin 2.1 L (3.2-5.2) gm/dL Assessment and Plan (1) Dry gangrene Status: Chronic Current Visit: Yes (2) Hyperglycemia due to type 2 diabetes mellitus Status: Acute Current Visit: No (3) Fecal impaction in rectum Status: Suspected Current Visit: No (4) Constipation Status: Chronic Current Visit: No (5) Knee effusion, right Status: Chronic Current Visit: No (6) Complication of skin graft Status: Acute Current Visit: No (7) CHF (congestive heart failure) Status: Acute Current Visit: Yes - Narrative A/P Narrative: Assessment: Satisfactory Progress. Plan: Continue current treatment. - Time Spent With Patient Total time spent is greater than 50% in coordination of care (as documented) at patient's floor/unit and/or counseling patient: 15 - 24 minutes
[2019-02-03] MEDS: DOBUTamine 250 MG in PREMIX 1 BAG IV SCH ×2 (18:39→22:33)
[2019-02-03] MEDS: SENNOSIDES/DOCUSATE SODIUM 1 TAB TABLET PO SCH (20:28)
[2019-02-03] MEDS: ATORVASTATIN 20 MG TABLET PO SCH (20:29)
[2019-02-03] MEDS: MIRTAZAPINE 15 MG TABLET PO SCH (20:29)
[2019-02-04] MEDS: DOBUTamine 250 MG in PREMIX 1 BAG IV SCH ×3 (01:37→14:15)
[2019-02-04] MEDS: fentaNYL 100 MCG/2 ML VIAL IV PRN (02:36)
[2019-02-04] MEDS: PIPERACILLIN SODIUM/TAZOBACTAM 3.375 GM in DEXTROSE 5% IN WATER 50 ML IV SCH (05:37)
[2019-02-04] MEDS: 0.9 % SODIUM CHLORIDE 10 ML SYRINGE IV SCH ×3 (05:37→14:16)
[2019-02-04] MEDS: FUROSEMIDE 40 MG/4 ML VIAL IV SCH ×2 (05:37→14:17)
[2019-02-04 06:09] LABS: Mean Cell Volume 80.8 fL (80.0-100.0); Mean Corpuscular HGB Conc 32.1 g/dL (31.0-36.0); Platelet Count 333 K/mcL (140-440); RBC 3.46 M/mcL (4.50-5.90); Red Cell Distribution Width 21.7 % (11.5-14.5)
[2019-02-04 06:44] LABS: ALT/SGPT 144 U/l (0-40); Albumin 2.6 gm/dL (3.2-5.2); Albumin/Globulin Ratio 0.9 (1.0-2.3); Alkaline Phosphatase 93 U/L (39-117); Bilirubin,Direct 0.8 mg/dL (0.0-0.3); Blood Urea Nitrogen 45 mg/dl (8-23); Gamma Glutamyl Transpeptidase 52 U/L (8-61); Uric Acid 10.4 mg/dL (2.5-8.0)
--- NOTE | 2019-02-04 07:06 | XRay Report ---
CLINICAL INFORMATION: CHF COMPARISON: 02/02/2019 FINDINGS: Moderate cardiomegaly is unchanged. Implantable cardioverter defibrillator remains in stable satisfactory position. Right IJ line in stable satisfactory position mediastinum is unremarkable. Pulmonary vessels show slight decrease in caliber remain mildly distended. Moderate right basilar infiltrate has worsened slightly. No definite effusion IMPRESSION: Mild CHF - equivocal improvement yesterday's film Moderate right basilar infiltrate slight worsening Interpreted and Authenticated by: Max Wright 02/04/19
[2019-02-04 07:35] LABS: Anisocytosis 2+ (NONE SEEN); Eosinophils % (Manual) 1 % (0-7); Hypochromasia 1+ (NONE SEEN); Lymphocytes % 5 % (15-49); Monocytes % (Manual) 6 % (1-12); Platelet Estimate NORMAL (NORMAL); RBC Morphology ABNORM (NORMAL); Segmented Neutrophils % 88 % (38-78)
--- NOTE | 2019-02-04 08:02 | Internal Med Progress Note ---
Medical - PN: Subj Patient information: Note initiated : 02/04/19 at 7:59 am Service Date, if different from initiated Date: [] Patient: Randy Ramirez a 69 y/o M admitted on 02/02/19 for left foot wound, right foot wound, poss. gangrene. Chief Complaint: [] Interval history: Mr. Ramirez is a 69 year old M with a history of atrial fibrillation/PVD /CVA/chronic kidney disease and insulin-dependent diabetes and chronic lower extremity wounds wheelchair dependent presents to the ER with his [id number] and brother with worsening pain and right big toe gangrenous changes. He has been following up with wound care for bilateral lower extremity wounds secondary to diabetes and PVD. During today's evaluation with concerns of low blood pressure and gangrenous change left great toe/sepsis he was directed from wound care for further evaluation. Patient underwent left great toenail removal at wound care clinic last week. Following procedure patient endorses that left toe has been turning purple with throbbing 8-10 out of 10 pain. During this time he has gotten progressively more weak fatigued and unable to function. He denies recent changes in medications. Initial workup in the ER was consistent with blood pressure on 70's, consistent with cardiogenic shock with pulmonary edema on chest imaging. Patient was started on antibiotic coverage/diuretics however due to drop in blood pressure he was started on dobutamine. Subsequently hospitalist service was consulted. Initial EKG was unremarkable, stat troponin 0.10. Patient denies active chest pain At the time evaluation patient is alert oriented. He is able to answer most questions. Denies chest pain diaphoresis. He endorsed a history as above 02/03- patient doing better than previous day. Did not respond to Lasix drip. C ontinue sequential nephron blockade with metolazone/Lasix. Continue dobutamine. Renal function improved creatinine 1.1 down from 1.5. Map at goal. Moderate bibasal infiltrates likely aspiration. Continue antibiotic coverage and Zosyn to cover for anaerobes as well as for cellulitis/gangrenous changes. Wound care on board. No family at bedside. Lymphedema improving 02/04-worsening renal function with creatinine 1.7. Significant change in mental status with increased confusion and disorientation. Multiple end organ dysfunction noted. Hematuria has improved. Downtrending urine output despite diuretics. Continue dobutamine, map at goal. Critically ill. Nephrology consult in light of worsening creatinine and persistent anasarca. Interval chest imaging CHF improvement since previous day however worsening basilar infiltrate. Wound care on board. Severe peripheral vascular disease with gangrenous changes precludes use of vasopressors unless absolutely necessary. - Constitutional Vitals: Vital Signs Temp Pulse Resp BP Pulse Ox 98.1 F 116 H 13 94/61 100 02/04/19 07:01 02/04/19 00:49 02/04/19 06:00 02/04/19 07:30 02/04/19 07:01 Period Temp Pulse Resp BP Sys/Jennings Pulse Ox Last 24 Hr 96.8 F-98.6 F 37-116 9-25 32-126/20-107 90-100 Intake and Output 02/03/19 02/04/19 02/04/19 21:59 05:59 13:59 Intake Total 1502 423 50 Output Total 93 138 69 Balance 1409 285 -19 Weight 185 lb Intake & Output: Intake & Output 02/03/19 02/04/19 02/04/19 21:59 05:59 13:59 Intake Total 1502 423 50 Output Total 93 138 69 Balance 1409 285 -19 Weight 185 lb Intake: IV 352 423 50 Dobutrex 250 mg In Premix 1 Bag 302 373 @ 0.5 MCG/KG/MIN 2.49 mls/hr IV .Q24H ROLAN[facility] Rx#:[id number] Zosyn 3.375 gm In Dextrose 5% 50 50 50 in Water 50 ml @ 100 mls/hr IV Q6H ROLANDA Rx#:[id number] Oral 1150 Output: Urine Catheter Amount 93 138 69 Other: Meal Dinner Percent of Meal Consumed 100% Feeding Ability Assist with Tray Set Up Urine Appearance Clear Clear Cloudy Sediment Uretheral (Lyons) Hematuria Urine Color Dark Red Bright Red Dark Red Bright Red Uretheral (Lyons) Dark Red Dark Red Urine Odor Normal Normal Exam: Confused and disoriented Foleys hematuria Intermittent A. fib on telemetry Lymphedema minimal improvement Diminished breath sounds bases Left great toe gangrenous change Medical - PN: Obj Da - Labs CBC & Chem 7: 02/04/19 04:07 02/04/19 04:07 Labs: Abnormal Lab Results 02/04/19 02/04/19 02/03/19 04:07 04:07 03:40 RBC 3.46 L Hgb 9.0 L Hct 28.0 L MCH 25.9 L RDW 21.7 H Seg Neutrophils % 88 H Lymphocytes % 5 L Nucleated RBCs RBC Morphology Abnorm A Polychromasia Hypochromasia 1+ A Poikilocytosis Anisocytosis 2+ A Acanthocytes (Spur) 2+ A RBC Fragments 2+ A VBG Lactic Acid Sodium 130 L Potassium Carbon Dioxide 19 L BUN 45 H 38 H Creatinine 1.7 H Glucose 135 H Uric Acid 10.4 H 9.0 H Calcium 7.9 L 6.3 L Total Bilirubin 1.4 H 1.4 H Direct Bilirubin 0.8 H 0.9 H AST ALT 144 H 147 H Troponin T C-Reactive Protein NT-Pro-B Natriuret Pep Total Protein 5.4 L 4.6 L Albumin 2.6 L 2.1 L Albumin/Globulin Ratio 0.9 L 0.8 L Urine Urobilinogen Urine RBC Amorphous Crystals Hyaline Casts Granular Casts 02/03/19 02/02/19 02/02/19 03:40 13:38 13:13 RBC 3.47 L Hgb 8.9 L Hct 28.2 L MCH 25.6 L RDW 21.4 H Seg Neutrophils % 81 H Lymphocytes % 13 L Nucleated RBCs RBC Morphology Abnorm A Polychromasia 1+ A Hypochromasia 1+ A Poikilocytosis Anisocytosis 2+ A Acanthocytes (Spur) 3+ A RBC Fragments 2+ A VBG Lactic Acid Sodium Potassium Carbon Dioxide BUN Creatinine Glucose Uric Acid Calcium Total Bilirubin Direct Bilirubin AST ALT Troponin T C-Reactive Protein 9.1 H NT-Pro-B Natriuret Pep 70433.0 H Total Protein Albumin Albumin/Globulin Ratio Urine Urobilinogen Urine RBC Amorphous Crystals Hyaline Casts Granular Casts 02/02/19 02/02/19 02/02/19 13:13 13:13 13:13 RBC Hgb Hct MCH RDW Seg Neutrophils % Lymphocytes % Nucleated RBCs RBC Morphology Polychromasia Hypochromasia Poikilocytosis Anisocytosis Acanthocytes (Spur) RBC Fragments VBG Lactic Acid 2.2 H Sodium Potassium Carbon Dioxide BUN Creatinine Glucose Uric Acid Calcium Total Bilirubin Direct Bilirubin AST ALT Troponin T 0.10 H* C-Reactive Protein NT-Pro-B Natriuret Pep Total Protein Albumin Albumin/Globulin Ratio Urine Urobilinogen 4.0 A Urine RBC 2 H Amorphous Crystals Few A Hyaline Casts 66 H Granular Casts 12 H 02/02/19 02/02/19 13:13 13:13 RBC 4.03 L Hgb 10.5 L Hct 32.8 L MCH RDW 21.2 H Seg Neutrophils % Lymphocytes % Nucleated RBCs 1 H RBC Morphology Polychromasia 1+ A Hypochromasia Poikilocytosis 2+ A Anisocytosis 2+ A Acanthocytes (Spur) 4+ A RBC Fragments 2+ A VBG Lactic Acid Sodium 130 L Potassium 6.2 H* Carbon Dioxide 20 L BUN 42 H Creatinine 1.5 H Glucose 107 H Uric Acid Calcium 8.5 L Total Bilirubin 1.7 H Direct Bilirubin AST 51 H ALT 223 H Troponin T C-Reactive Protein NT-Pro-B Natriuret Pep Total Protein Albumin 2.9 L Albumin/Globulin Ratio 0.9 L Urine Urobilinogen Urine RBC Amorphous Crystals Hyaline Casts Granular Casts Meds: Medications Acetaminophen (Tylenol) 650 mg PO Q4-6HP PRN PRN Reason: PAIN/FEVER > 101 Albuterol Sulfate (Ventolin) 2 puff INH Q4HP PRN PRN Reason: Bronchospasm Atorvastatin Calcium (Lipitor) 80 mg PO HS [facility] Last Admin: 02/03/19 20:29 Dose: 80 mg Documented by: Bacitracin (Bacitracin Topical Oint) 1 dose TOPICAL BID [facility] Last Admin: 02/03/19 20:31 Dose: 1 dose Documented by: Clopidogrel Bisulfate (Plavix) 75 mg PO DAILY [facility] Last Admin: 02/03/19 09:44 Dose: 75 mg Documented by: Dabigatran (Pradaxa) 150 mg PO BID [facility] Last Admin: 02/03/19 20:29 Dose: 150 mg Documented by: Dextrose (Dextrose 50%) 0 ml IV UD PRN PRN Reason: Hypoglycemia Diagnostic Test (Pha) (Accu-Chek) 1 each FS ACHS [facility] Last Admin: 02/03/19 20:30 Dose: 1 each Documented by: Digoxin (Lanoxin) 125 mcg PO DAILY@1400 [facility] Last Admin: 02/03/19 14:04 Dose: 125 mcg Documented by: Docusate Sodium (Colace) 100 mg PO BID [facility] Last Admin: 02/03/19 20:28 Dose: 100 mg Documented by: Fentanyl (Sublimaze) 12.5 mcg IV Q4HP PRN PRN Reason: PAIN LEVEL > 6 Last Admin: 02/03/19 00:24 Dose: 12.5 mg Documented by: Furosemide (Lasix) 40 mg IV Q8 [facility] Last Admin: 02/04/19 05:37 Dose: 40 mg Documented by: Glucose (Insta-Glucose) 15 gm PO PRN PRN PRN Reason: Hypoglycemia Magnesium Sulfate (Magnesium Sulfate) 2 gm in 50 mls @ 50 mls/hr IV UD PRN PRN Reason: MG = or < 1.7 Last Infusion: 02/03/19 11:09 Dose: Infused Documented by: Piperacillin Sod/Tazobactam (Sod 3.375 gm/ Dextrose) 50 mls @ 100 mls/hr IV Q6H [facility] Last Infusion: 02/04/19 07:00 Dose: Infused Documented by: Furosemide 250 mg/ Sodium (Chloride) 250 mls @ 4 mls/hr IV Q24HP PRN; Protocol PRN Reason: Edema Dobutamine HCl/Dextrose 250 mg (/ Premix) 250 mls @ 2.49 mls/hr IV .Q24H [facility]; Protocol Last Titration: 02/04/19 02:11 Dose: 9 mcg/kg/min, 44.82 mls/hr Documented by: Insulin Human Lispro (Humalog) 0 unit SQ ACHS [facility]; Protocol Last Admin: 02/03/19 20:31 Dose: 2 unit Documented by: Iron Carb/Multivit/Mapping Technician/Folic Acid (Multivitamin W/Minerals) 1 tab PO DAILY [facility] Last Admin: 02/03/19 09:44 Dose: 1 tab Documented by: Levothyroxine Sodium (Synthroid) 50 mcg PO ACB [facility] Last Admin: 02/03/19 09:44 Dose: 50 mcg Documented by: Metolazone (Zaroxolyn) 2.5 mg PO DAILY@1330 [facility] Metoprolol Succinate (Toprol Xl) 25 mg PO DAILY [facility] Last Admin: 02/03/19 09:45 Dose: 25 mg Documented by: Mirtazapine (Remeron) 7.5 mg PO HS [facility] Last Admin: 02/03/19 20:29 Dose: 7.5 mg Documented by: Ondansetron HCl (Zofran) 4 mg IV Q4-6HP PRN PRN Reason: Nausea And Vomiting Oxandrolone (Oxandrin) 10 mg PO DAILY [facility] Last Admin: 02/03/19 09:47 Dose: 10 mg Documented by: Oxycodone/Acetaminophen (Percocet 5-325 Mg) 1 tab PO Q6HP PRN PRN Reason: Pain Last Admin: 02/03/19 20:29 Dose: 1 tab Documented by: Lubiprostone [ (Amitiza] 8 Mcg) 1 dose PO BID [facility] Last Admin: 02/03/19 20:31 Dose: Not Given Documented by: Polyethylene Glycol (Miralax) 17 gm PO DAILY [facility] Last Admin: 02/03/19 09:46 Dose: Not Given Documented by: Senna/Docusate Sodium (Senna Plus Tablet) 1 tab PO HS [facility] Last Admin: 02/03/19 20:28 Dose: 1 tab Documented by: Sitagliptin Phosphate (Januvia) 100 mg PO DAILY [facility] Last Admin: 02/03/19 09:44 Dose: 100 mg Documented by: Sodium Chloride (Saline Flush) 10 ml IV Q8 [facility] Last Admin: 02/04/19 05:37 Dose: 10 ml Documented by: Sodium Chloride (Saline Flush) 10 ml IV Q12 [facility] Last Admin: 02/03/19 22:21 Dose: Not Given Documented by: Sodium Chloride (Saline Flush) 10 ml IV UD PRN PRN Reason: medications Medical - PN: A/P - Time Spent With Patient Total time spent is greater than 50% in coordination of care (as documented) at patient's floor/unit and/or counseling patient: Greater than 35 minutes (critical care time) (1) Shock, cardiogenic Status: Acute Assessment and plan: * Cardiogenic shock with pulmonary radiologically improved however poor response to diuretics in last 24 hours. Last EF 30%. Continue dobutamine, digoxin level 0.12. Cardiology consult. * Acute renal failure-nephrology consulted. * Acute change in mental status with delirium * Sepsis with multiple organ dysfunction on broad antibiotic coverage * Left Great toe gangrene/Cellulitis-wound care consult, Abx * Bilateral lower lobe pneumonia-possible aspiration, continue empiric antibiotic coverage * Acute on chronic kidney disease-creatinine improved 1.1 * History of PVD/CAD continue Plavix/statin/digoxin/beta kaleb/YULISSA inhibitor(held in light of shock) * Hypothyroidism continue thyroxine * History of hypertension-keep meds on hold until shock resolved * Chronic pain on oxycodone * History of COPD continue bronchodilators * Full code Plan * Continue ICU care * Patient critically ill on pressors and multiple organ dysfuction, NOOKSACK II 16 * Nephrology consult, May need transfer to tertiary center * Family conference for goals of care * Continue antibiotic coverage * Wound care Current Visit: Yes Medical - PN: Qual - Stroke Symptom Onset Unknown: No - VTE Deep Vein Thrombosis/Pulmonary Embolism Present on Admission: No
[2019-02-04] MEDS: INSULIN LISPRO 1 UNIT/0.01 ML UNIT SQ SCH ×2 (08:47→12:04)
[2019-02-04] MEDS: OXANDROLONE 2.5 MG TABLET PO SCH (08:49)
[2019-02-04] MEDS: MULTIVIT,THER IRON,CA,FA & MIN 1 TABLET PO SCH (08:49)
[2019-02-04] MEDS: METOPROLOL SUCCINATE 50 MG TAB.XL.24H PO SCH (08:49)
[2019-02-04] MEDS: LEVOTHYROXINE 50 MCG TABLET PO SCH (08:49)
[2019-02-04] MEDS: DOCUSATE SODIUM 100 MG CAPSULE PO SCH (08:50)
[2019-02-04] MEDS: POLYETHYLENE GLYCOL 3350 17 GM PACKET PO SCH (08:50)
[2019-02-04] MEDS: CLOPIDOGREL 75 MG TABLET PO SCH (08:50)
[2019-02-04] MEDS: BACITRACIN TOPICAL OINT 15 GM TUBE TOPICAL SCH (08:50)
[2019-02-04] MEDS: sitaGLIPtin 100 MG TABLET PO SCH (08:50)
[2019-02-04] MEDS: Lubiprostone [Amitiza] 8 MCG PO SCH (08:51)
[2019-02-04] MEDS: DABIGATRAN ETEXILATE MESYLATE 75 MG CAPSULE PO SCH (08:51)
[2019-02-04] MEDS ORDERED: 0.9 % SODIUM CHLORIDE 250 ML IV SCH (12:00)
[2019-02-04] MEDS ORDERED: PIPERACILLIN SODIUM/TAZOBACTAM 2.25 GM in DEXTROSE 5% IN WATER 50 ML IV SCH (12:00)
[2019-02-04] MEDS ORDERED: NOREPINEPHRINE BITARTRATE 16 MG in 0.9 % SODIUM CHLORIDE 234 ML IV SCH (12:00)
[2019-02-04] MEDS ORDERED: METOLAZONE 2.5 MG TABLET PO SCH (13:30)
[2019-02-04] MEDS ORDERED: DIGOXIN 125 MCG TABLET PO SCH (14:00)
--- NOTE | 2019-02-04 15:01 | Transfer Summary ---
Transfer Discharge Sum: Prov Patient information: Note initiated : 02/04/19 at 2:58 pm Service Date, if different from initiated Date: [] Patient: Randy Ramirez 69 y/o M admitted on 02/02/19 for left foot wound, right foot wound, poss. gangrene. Chief Complaint: [] Date of admission: 02/02/19 15:40 Discharge Date: 02/04/19 Primary care physician: Geovanna De Santiago Consults: 02/02/19 Consult to Physician [CONS] Stat Comment: Consulting Provider: Adam Rossi Reason For Exam: Physician to Consult 02/02/19 15:45 Consult to Physician [CONS] Routine Comment: Consulting Provider: Fransico Garces Reason For Exam: Physician to Consult 02/04/19 07:12 Consult to Physician [CONS] Routine Comment: Consulting Provider: Katina Herrera Reason For Exam: Physician to Consult Transfer Discharge Sum: Med - Medications Active and Home Medications: Home Medications Atorvastatin [Lipitor] 80 mg PO HS 10/23/18 [History Confirmed 02/02/19] Digoxin [Lanoxin] 125 mcg PO DAILY 10/23/18 [History Confirmed 02/02/19] Furosemide [Lasix] 20 mg PO DAILY 10/23/18 [History Confirmed 02/02/19] Furosemide [Lasix] 40 mg PO DAILY 10/23/18 [History Confirmed 02/02/19] Levothyroxine [Synthroid] 50 mcg PO DAILY 10/23/18 [History Confirmed 02/02/19] Lisinopril [Zestril] 2.5 mg PO DAILY 10/23/18 [History Confirmed 02/02/19] Metoprolol Succinate [Toprol Xl] 25 mg PO DAILY 10/23/18 [History Confirmed 02/02/19] Mirtazapine 7.5 mg PO HS 10/23/18 [History Confirmed 02/02/19] metFORMIN [Glucophage] 500 mg PO BID 10/23/18 [History Confirmed 02/02/19] Polyethylene Glycol 3350 [Miralax] 17 gm PO DAILY #30 packet 10/27/18 [Rx Confirmed 02/02/19] Clopidogrel Bisulfate [Plavix] 75 mg PO DAILY 12/10/18 [History Confirmed 02/02/19] Dabigatran Etexilate Mesylate [Pradaxa] 150 mg PO BID 12/10/18 [History Confirmed 02/02/19] oxyCODONE/APAP [Percocet 5-325 mg] 1 tab PO Q6HP PRN #30 tab 01/01/19 [Rx Confirmed 02/02/19] Albuterol Sulfate [Ventolin] 2 puff INH Q4HP PRN 02/02/19 [History Confirmed 02/02/19] Lubiprostone [Amitiza] 8 mcg PO BID 02/02/19 [History Confirmed 02/02/19] Oxandrolone 10 mg PO DAILY 02/02/19 [History Confirmed 02/02/19] Active Medications Acetaminophen (Tylenol) 650 mg PO Q4-6HP PRN PRN Reason: PAIN/FEVER > 101 Albuterol Sulfate (Ventolin) 2 puff INH Q4HP PRN PRN Reason: Bronchospasm Atorvastatin Calcium (Lipitor) 80 mg PO HS [facility] Last Admin: 02/03/19 20:29 Dose: 80 mg Documented by: Bacitracin (Bacitracin Topical Oint) 1 dose TOPICAL BID [facility] Last Admin: 02/04/19 08:50 Dose: 1 dose Documented by: Clopidogrel Bisulfate (Plavix) 75 mg PO DAILY [facility] Last Admin: 02/04/19 08:50 Dose: 75 mg Documented by: Dabigatran (Pradaxa) 150 mg PO BID [facility] Last Admin: 02/04/19 08:51 Dose: 150 mg Documented by: Dextrose (Dextrose 50%) 0 ml IV UD PRN PRN Reason: Hypoglycemia Diagnostic Test (Pha) (Accu-Chek) 1 each FS ACHS [facility] Last Admin: 02/04/19 12:04 Dose: 1 each Documented by: Digoxin (Lanoxin) 125 mcg PO Q48@1400 [facility] Docusate Sodium (Colace) 100 mg PO BID [facility] Last Admin: 02/04/19 08:50 Dose: 100 mg Documented by: Fentanyl (Sublimaze) 12.5 mcg IV Q4HP PRN PRN Reason: PAIN LEVEL > 6 Last Admin: 02/03/19 00:24 Dose: 12.5 mg Documented by: Furosemide (Lasix) 40 mg IV Q8 [facility] Last Admin: 02/04/19 14:17 Dose: 40 mg Documented by: Glucose (Insta-Glucose) 15 gm PO PRN PRN PRN Reason: Hypoglycemia Magnesium Sulfate (Magnesium Sulfate) 2 gm in 50 mls @ 50 mls/hr IV UD PRN PRN Reason: MG = or < 1.7 Last Infusion: 02/03/19 11:09 Dose: Infused Documented by: Furosemide 250 mg/ Sodium (Chloride) 250 mls @ 4 mls/hr IV Q24HP PRN; Protocol PRN Reason: Edema Dobutamine HCl/Dextrose 250 mg (/ Premix) 250 mls @ 2.49 mls/hr IV .Q24H [facility]; Protocol Last Admin: 02/04/19 14:15 Dose: 12 mcg/kg/min, 59.77 mls/hr Documented by: Piperacillin Sod/Tazobactam (Sod 2.25 gm/ Dextrose) 50 mls @ 100 mls/hr IV Q6H [facility] Last Infusion: 02/04/19 13:51 Dose: Infused Documented by: Norepinephrine Bitartrate 16 (mg/ Sodium Chloride) 250 mls @ 9.38 mls/hr IV Q24H [facility]; Protocol Last Titration: 02/04/19 13:51 Dose: 7 mcg/min, 6.56 mls/hr Documented by: Sodium Chloride (Sodium Chloride 0.9%) 250 mls @ 20 mls/hr IV .[id number] [facility] Insulin Human Lispro (Humalog) 0 unit SQ ACHS [facility]; Protocol Last Admin: 02/04/19 12:04 Dose: 1 unit Documented by: Iron Carb/Multivit/[place]/Folic Acid (Multivitamin W/Minerals) 1 tab PO DAILY [facility] Last Admin: 02/04/19 08:49 Dose: 1 tab Documented by: Levothyroxine Sodium (Synthroid) 50 mcg PO ACB [facility] Last Admin: 02/04/19 08:49 Dose: 50 mcg Documented by: Metoprolol Succinate (Toprol Xl) 25 mg PO DAILY [facility] Last Admin: 02/04/19 08:49 Dose: 25 mg Documented by: Mirtazapine (Remeron) 7.5 mg PO HS [facility] Last Admin: 02/03/19 20:29 Dose: 7.5 mg Documented by: Ondansetron HCl (Zofran) 4 mg IV Q4-6HP PRN PRN Reason: Nausea And Vomiting Oxandrolone (Oxandrin) 10 mg PO DAILY [facility] Last Admin: 02/04/19 08:49 Dose: 10 mg Documented by: Oxycodone/Acetaminophen (Percocet 5-325 Mg) 1 tab PO Q6HP PRN PRN Reason: Pain Last Admin: 02/03/19 20:29 Dose: 1 tab Documented by: Lubiprostone [ (Amitiza] 8 Mcg) 1 dose PO BID [facility] Last Admin: 02/04/19 08:51 Dose: Not Given Documented by: Polyethylene Glycol (Miralax) 17 gm PO DAILY [facility] Last Admin: 02/04/19 08:50 Dose: Not Given Documented by: Senna/Docusate Sodium (Senna Plus Tablet) 1 tab PO HS [facility] Last Admin: 02/03/19 20:28 Dose: 1 tab Documented by: Sitagliptin Phosphate (Januvia) 100 mg PO DAILY [facility] Last Admin: 02/04/19 08:50 Dose: 100 mg Documented by: Sodium Chloride (Saline Flush) 10 ml IV Q8 [facility] Last Admin: 02/04/19 14:16 Dose: 10 ml Documented by: Sodium Chloride (Saline Flush) 10 ml IV Q12 [facility] Last Admin: 02/04/19 08:51 Dose: 10 ml Documented by: Sodium Chloride (Saline Flush) 10 ml IV UD PRN PRN Reason: medications Transfer Discharge Sum: Hosp Hospital course: Mr. Ramirez is a 69 year old M Mr. Ramirez is a 69 year old M with a history of atrial fibrillation/PVD /CVA/chronic kidney disease and insulin-dependent diabetes and chronic lower extremity wounds wheelchair dependent presents to the ER with his zjsgnb-wf-xcw and brother with worsening pain and right big toe gangrenous changes. He has been following up with wound care for bilateral lower extremity wounds secondary to diabetes and PVD. During today's evaluation with concerns of low blood pressure and gangrenous change left great toe/sepsis he was directed from wound care for further evaluation. Patient underwent left great toenail removal at wound care clinic last week. Following procedure patient endorses that left toe has been turning purple with throbbing 8-10 out of 10 pain. During this time he has gotten progressively more weak fatigued and unable to function. He denies recent changes in medications. Initial workup in the ER was consistent with blood pressure on 70's, consistent with cardiogenic shock with pulmonary edema on chest imaging. Patient was started on antibiotic coverage/diuretics however due to drop in blood pressure he was started on dobutamine. Subsequently hospitalist service was consulted. Initial EKG was unremarkable, stat troponin 0.10. Patient denies active chest pain At the time evaluation patient is alert oriented. He is able to answer most questions. Denies chest pain diaphoresis. He endorsed a history as above 02/03- patient doing better than previous day. Did not respond to Lasix drip. Continue sequential nephron blockade with metolazone/Lasix. Continue dobutamine. Renal function improved creatinine 1.1 down from 1.5. Map at goal. Moderate bibasal infiltrates likely aspiration. Continue antibiotic coverage and Zosyn to cover for anaerobes as well as for cellulitis/gangrenous changes. Wound care on board. No family at bedside. Lymphedema improving 02/04-worsening renal function with creatinine 1.7. Significant change in mental status with increased confusion and disorientation. Multiple end organ dysfunction noted. Hematuria has improved. Downtrending urine output despite diuretics. Continue dobutamine, map at goal. Critically ill. Nephrology consult in light of worsening creatinine and persistent anasarca. Interval chest imaging CHF improvement since previous day however worsening basilar infiltrate. Wound care on board. Severe peripheral vascular disease with gangrenous changes precludes use of vasopressors unless absolutely necessary. Patient currently on Levophed and dobutamine unable to titrate down. Urine output decreasing. Spoke with Dr. Miller at [facility] who graciously accepted the patient in transfer - Time Spent with Patient Total time spent providing and/or coordinating transfer services: Greater than 30 minutes Transfer Discharge Sum: Exam - Constitutional Vitals: Vital Signs Temp Pulse Pulse Resp BP BP Pulse Ox 02/04/19 13:06 13 02/04/19 13:05 17 97/66 02/04/19 12:50 17 112/71 02/04/19 12:43 15 02/04/19 12:41 12 100/67 02/04/19 12:30 13 99/59 02/04/19 12:01 24 H 81/72 02/04/19 12:00 98.1 F 94 H 15 100/67 100 02/04/19 11:30 12 89/53 02/04/19 11:01 16 76/43 02/04/19 10:44 15 02/04/19 10:31 14 96/79 02/04/19 10:03 13 89/49 02/04/19 09:31 99/71 02/04/19 08:31 87/58 02/04/19 08:00 18 92/80 100 02/04/19 07:30 94/61 02/04/19 07:01 98.1 F 84/64 100 02/04/19 06:31 96/60 02/04/19 06:00 13 92/76 100 02/04/19 05:30 10 L 106/64 02/04/19 05:01 12 85/66 100 02/04/19 04:31 14 81/52 99 02/04/19 04:01 98.6 F 11 L 84/58 97 02/04/19 03:32 12 97/62 100 02/04/19 03:02 9 L 95/55 100 02/04/19 02:30 18 84/60 99 02/04/19 02:00 79/66 99 02/04/19 01:50 14 84/54 97 02/04/19 01:45 13 70/39 100 02/04/19 01:31 85/52 100 02/04/19 01:15 12 86/51 99 02/04/19 01:00 15 89/54 100 02/04/19 00:50 12 93/46 100 02/04/19 00:49 116 H 14 90 02/04/19 00:43 14 71/47 100 02/04/19 00:37 17 75/36 100 02/04/19 00:16 16 87/38 99 02/04/19 00:00 97.3 F 69 14 91/60 95 02/03/19 23:46 77 18 85/56 100 02/03/19 23:30 84 14 77/55 99 02/03/19 23:05 18 98/63 99 02/03/19 22:46 37 L 17 117/89 100 02/03/19 22:31 51 L 15 106/58 100 02/03/19 22:16 75 16 89/55 100 02/03/19 21:57 43 L 14 98/56 100 02/03/19 21:54 71 16 100 02/03/19 21:48 61 14 100 02/03/19 21:31 77 13 104/42 100 02/03/19 21:15 50 L 15 77/66 100 02/03/19 21:03 65 17 74/59 100 02/03/19 21:01 15 84/46 02/03/19 20:47 59 L 13 111/93 100 02/03/19 20:31 70 23 H 83/59 100 02/03/19 20:16 81 22 64/54 100 02/03/19 20:01 82 18 89/48 100 02/03/19 19:53 91 H 19 100 02/03/19 19:45 75 15 92/59 100 02/03/19 19:36 95 H 17 91/62 100 02/03/19 19:32 80 21 100 02/03/19 19:23 100 02/03/19 19:15 80 19 81/66 100 02/03/19 19:00 97.5 F 18 90/50 99 02/03/19 18:49 76 17 82/47 100 02/03/19 18:31 78 25 H 82/39 100 02/03/19 18:16 77 18 92/56 100 02/03/19 18:06 63 20 100 02/03/19 18:01 83 17 126/82 100 02/03/19 17:56 92 H 19 99/61 100 02/03/19 17:41 76 15 100 02/03/19 17:30 19 122/86 02/03/19 17:18 21 107/51 02/03/19 17:01 92 H 15 95/78 100 02/03/19 16:45 93 H 15 110/54 100 02/03/19 16:25 88 16 90/72 100 02/03/19 16:17 18 59/50 02/03/19 16:11 88 16 100 02/03/19 16:00 87 14 102/76 100 02/03/19 15:46 86 12 97/58 100 02/03/19 15:31 100 H 22 87/56 100 02/03/19 15:16 79 13 101/55 100 02/03/19 15:14 53 L 15 80/52 100 02/03/19 15:11 88 17 97/60 100 02/03/19 15:07 70 21 45/25 100 02/03/19 15:03 68 13 67/41 100 Intake and Output 02/04/19 02/04/19 02/04/19 05:59 13:59 21:59 Intake Total 423 923 111 Output Total 138 160 15 Balance 285 763 96 Intake: IV 423 443 111 Dobutrex 250 mg In Premix 1 Bag 373 335 111 @ 0.5 MCG/KG/MIN 2.49 mls/hr IV .Q24H [facility] Rx#:[id number] Levophed 16 mg In Sodium 8 Chloride 0.9% 234 ml @ 10 MCG/ MIN 9.38 mls/hr IV Q24H [facility] Rx# :[id number] Zosyn 2.25 gm In Dextrose 5% in 50 Water 50 ml @ 100 mls/hr IV Q6H [facility] Rx#:[id number] Zosyn 3.375 gm In Dextrose 5% 50 50 in Water 50 ml @ 100 mls/hr IV Q6H [facility] Rx#:[id number] Oral 480 Output: Urine Catheter Amount 138 160 15 Other: Meal Lunch Percent of Meal Consumed 70% Feeding Ability Assist with Tray Set Up Urine Appearance Clear Hematuria Hematuria Uretheral (Lyons) Hematuria Urine Color Bright Red Dark Red Uretheral ([place]ons) Dark Red Dark Red Urine Odor Normal Normal Transfer Discharge Sum: Data Procedures and tests throughout hospitalization: Pending Orders 02/02/19 Consult to Physician [CONS] Stat 02/02/19 14:54 Resuscitation Status Routine 02/02/19 15:45 Case Management Referral .Routine Admit as Inpatient Routine Ambulate-Progressive PRN Blood Culture PRN PRN swatch folder CONT Condition Routine Elevate head of bed .ROUTINE Intake and Output 00, 01,02,03,04,05,06,07,08,09,10,11,12,13,14,15,16,17,18,19,20,21,22,23 Occult blood, stool, guaic poc .ALL STOOLS Oral hygiene .ROUTINE Specialty Bed PRN Vital Signs Q4H Weight Monitoring QHS Consult to Physician [CONS] Routine Acetaminophen [Tylenol] 650 mg PO Q4-6HP PRN Dextrose 50% See Dose Instructions IV UD PRN Dextrose [Insta-Glucose] 15 gm PO PRN PRN Magnesium Sulfate 2 gm in 50 ml IV UD Ondansetron [Zofran] 4 mg IV Q4-6HP PRN RD to Adjust Diet/Supplements as Needed Routine Occupational Therapy Eval & Tx DAILY Physical Therapy Eval & Tx QD-BID Incentive Spirometry Assess/Tx Q2HWA Oxygen Order .Routine 02/02/19 17:00 Accu-Chek 1 each FS ACHS Insulin Lispro [HumaLOG] See Dose Instructions SQ ACHS 02/02/19 17:23 fentaNYL [Sublimaze] 12.5 mcg IV Q4HP PRN 02/02/19 18:08 Wound Nurse Referral .Routine 02/02/19 19:00 Central Line 2000,0800 02/02/19 19:31 Central Line Dressing Change PRN 0.9 % Sodium Chloride [Saline Flush] 10 ml IV UD PRN 02/02/19 20:02 Albuterol Sulfate [Ventolin] 2 puff INH Q4HP PRN oxyCODONE/APAP [PERCOCET 5-325 mg] 1 tab PO Q6HP PRN 02/02/19 20:03 Nebulizer management .Routine 02/02/19 21:00 0.9 % Sodium Chloride [Saline Flush] 10 ml IV Q12 Atorvastatin [Lipitor] 80 mg PO HS Dabigatran Etexilate Mesylate [Pradaxa] 150 mg PO BID Docusate Sodium [Colace] 100 mg PO BID Mirtazapine [Remeron] 7.5 mg PO HS Patients Own Medication 1 dose PO BID Sennosides/Docusate Sodium [Senna Plus Tablet] 1 tab PO HS 02/02/19 21:09 Blood Culture Stat 02/02/19 22:00 0.9 % Sodium Chloride [Saline Flush] 10 ml IV Q8 02/03/19 07:30 Levothyroxine [Synthroid] 50 mcg PO ACB 02/03/19 08:00 Furosemide [Lasix] 250 mg 0.9 % Sodium Chloride [Sodium Chloride 0.9%] 225 ml IV Q24HP 02/03/19 09:00 Bacitracin Topical Oint 1 dose TOPICAL BID Clopidogrel [Plavix] 75 mg PO DAILY Metoprolol Succinate [Toprol Xl] 25 mg PO DAILY Multivit,Ther Iron,Ca,FA & Min [Multivitamin W/Minerals] 1 tab PO DAILY Oxandrolone [Oxandrin] 10 mg PO DAILY Polyethylene Glycol 3350 [Miralax] 17 gm PO DAILY sitaGLIPtin [Januvia] 100 mg PO DAILY 02/03/19 10:20 Wound Care/Dressings BID 02/03/19 13:49 Cardiac Diet 02/03/19 14:00 Furosemide [Lasix] 40 mg IV Q8 02/03/19 16:45 Premix 1 bag DOBUTamine [Dobutrex] 250 mg IV 0.5 mcg/kg/min 02/04/19 02:16 Communication order ONCE 02/04/19 07:12 Consult to Physician [CONS] Routine 02/04/19 11:41 US renal BI Urgent 02/04/19 12:00 0.9 % Sodium Chloride [Sodium Chloride 0.9%] 250 ml IV 20 mls/hr Norepinephrine Bitartrate [Levophed] 16 mg 0.9 % Sodium Chloride [Sodium Chloride 0.9%] 234 ml IV Q24H Piperacillin Sodium/Tazobactam [Zosyn] 2.25 gm Dextrose 5% in Water 50 ml IV Q6H 02/04/19 14:46 ABG (RT) NOW 02/04/19 19:31 Central Line Dressing Change Q48 02/05/19 04:00 Complete Blood Count Man Dif DAILY Inpatient Panel DAILY 02/05/19 14:00 Digoxin [Lanoxin] 125 mcg PO Q48@1400 02/06/19 04:00 Complete Blood Count Man Dif DAILY Inpatient Panel DAILY 02/07/19 04:00 Complete Blood Count Man Dif DAILY Inpatient Panel DAILY Transfer Discharge Sum: A/P - Plan Functional capacity at transfer: bed bound Overall status at transfer: patient is not back to baseline Disposition: [facility] Quality Measure Queries - VTE Deep Vein Thrombosis/Pulmonary Embolism Present on Admission: No
[2019-02-04] MEDS ORDERED: THIAMINE 100 MG in 0.9 % SODIUM CHLORIDE 50 ML IV ONE (15:08)
--- NOTE | 2019-02-04 15:16 | Ultrasound Report ---
CLINICAL INFORMATION: ACUTE RENAL FAILURE COMPARISON: None. FINDINGS: Both kidneys are normal and symmetric in size, position and configuration: The right is 12.2 x 6 cm and left 12.2 x 6 cm. Renal parenchymal echotexture is moderately elevated patible with medical renal disease. There is a 7 cm cyst superior pole the left kidney. Mild irregularity in both renal contour represent either lobulation and/or small infarcts. No masses. [place]ons catheter is decompressing the urinary bladder which is grossly normal. IMPRESSION: Elevated renal echotexture compatible medical renal disease. 7 cm cyst upper pole left kidney Irregular contour abnormality of both kidneys representing either lobulation and/or small infarcts. Interpreted and Authenticated by: Max Wright 02/04/19
--- NOTE | 2019-02-04 17:17 | Nephrology Consult Note ---
History of Present Illness - Reason for Consult Patient information: Note initiated : 02/04/19 at 5:15 pm Service Date, if different from initiated Date: [] Patient: Randy Ramirez 69 y/o M admitted on 02/02/19 for left foot wound, right foot wound, poss. gangrene. Chief Complaint: [] Consult date: 02/04/19 acute renal failure Requesting physician: Adam Rossi - Chief Complaint weakness - History of Present Illness Mr. Ramirez is a 69 year old M with a history of atrial fibrillation/PVD /CVA/chronic kidney disease and insulin-dependent diabetes and chronic lower extremity wounds wheelchair dependent presents to the ER with his zjyugv-yf-zzi and brother with worsening pain and right big toe gangrenous changes. Patient reported to have weakness and he also tried to get toe nail out and then had infection/discoloration at the toe He was seen in wound care and noted to have hypotension and referred to ER There he was noted to have hypotension, hyperkalemia, s.creatinine of 1.5, elevated pro bnp, black discoloration of the toe and other medical issues and was hospitalised Patient is been treated with IV antibiotics(for pna and cellulitis), diuretics, dobutamine (given hypotension) He is noted to have poor urinary output and worsening renal function and hence nephrology is consulted This am he was reported to have some confusion as well Cardiology was consulted, and recommended patient be transferred to tertiary center Review of Systems All systems PM: reviewed and no additional remarkable complaints except as stated (as in HPI) Past History Past medical history: CHF, EF of 25-30%, afib, s/p dfibrillator PVD wheelchair bound DM type 2 on insulin multiple LE wounds follows with wound care Past surgical history: s/p defibrillator placement Past family history: not pertinent to this hospital stay Past social history: former smoker lives with his brother and sister in law Medications and Allergies Home Medications Medication Instructions Recorded Confirmed Type Atorvastatin [Lipitor] 80 mg PO HS 10/23/18 02/02/19 History Digoxin [Lanoxin] 125 mcg PO DAILY 10/23/18 02/02/19 History Furosemide [Lasix] 20 mg PO DAILY 10/23/18 02/02/19 History Furosemide [Lasix] 40 mg PO DAILY 10/23/18 02/02/19 History Levothyroxine [Synthroid] 50 mcg PO DAILY 10/23/18 02/02/19 History Lisinopril [Zestril] 2.5 mg PO DAILY 10/23/18 02/02/19 History Metoprolol Succinate [Toprol Xl] 25 mg PO DAILY 10/23/18 02/02/19 History Mirtazapine 7.5 mg PO HS 10/23/18 02/02/19 History metFORMIN [Glucophage] 500 mg PO BID 10/23/18 02/02/19 History Polyethylene Glycol 3350 [Miralax] 17 gm PO DAILY #30 packet 10/27/18 02/02/19 Rx Clopidogrel Bisulfate [Plavix] 75 mg PO DAILY 12/10/18 02/02/19 History Dabigatran Etexilate Mesylate 150 mg PO BID 12/10/18 02/02/19 History [Pradaxa] oxyCODONE/APAP [Percocet 5-325 mg] 1 tab PO Q6HP PRN #30 tab 01/01/19 02/02/19 Rx Albuterol Sulfate [Ventolin] 2 puff INH Q4HP PRN 02/02/19 02/02/19 History Lubiprostone [Amitiza] 8 mcg PO BID 02/02/19 02/02/19 History Oxandrolone 10 mg PO DAILY 02/02/19 02/02/19 History Allergies Allergy/AdvReac Type Severity Reaction Status Date / Time No Known Drug Allergies Allergy Verified 02/02/19 10:57 Exam - Vital Signs Vital signs: Temp Pulse Resp BP Pulse Ox 97.0 F 88 20 96/60 100 02/04/19 16:00 02/04/19 14:22 02/04/19 16:16 02/04/19 16:10 02/04/19 14:22 - General Appearance General appearance: appears started age, chronically ill, frail EENT: mucous membranes moist Neck: no JVD Respiratory: clear Cardiology: no rub, edema, irregular rhythm Gastrointestinal: no tenderness, no guarding Integumentary: warm and dry Neurologic: alert and oriented x3 (when I saw he was laert, oriented and not confused ) Musculoskeletal: no cyanosis, no clubbing Psychiatric: mood/affect appropriate Results - Lab Results 02/04/19 04:07 02/04/19 04:07 Most recent lab results Calcium 7.9 mg/dl (8.6-10.4) L 02/04/19 04:07 Phosphorus 4.1 mg/dL (2.7-4.5) 02/04/19 04:07 Magnesium 2.4 mg/dL (1.6-2.5) 02/04/19 04:07 Assessment and Plan (1) BRANDI (acute kidney injury) Status: Acute (2) CHF (congestive heart failure) Status: Acute Priority: High Qualifiers: Heart failure type: combined systolic and diastolic Heart failure c hronicity: acute on chronic Qualified Code(s): I50.43 - Acute on chronic combined systolic (congestive) and diastolic (congestive) heart failure (3) Sepsis associated hypotension Status: Acute - Narrative A/P Narrative: BRANDI likely from hypotension/sepsis would request pressors if possible to keep MAP above 65 CVP is at 15, no s/o fluid depletion, rather patient has significant fluid balance since hospitalisation if no improvement in renal function will need to cut back on pradaxa/sitaglipitin and dose other meds to egfr will benefit from cardiology consult, consider transfer to tertiary center avoid nephrotoxic meds dose meds to egfr no emergent need for CLINICAL EDUCATOR Thank you for giving me an opportunity to participate in Mr Ramirez's medical care, appreciate it
--- NOTE | 2019-02-04 18:06 | General Surgery Progress Note ---
Subjective Patient reports: other (Interval devewlopments noted and discussed with hospitalist physician. ) Narrative: Note initiated : 02/04/19 at 6:03 pm Service Date, if different from initiated Date: [] Patient: Randy Ramirez 69 y/o M admitted on 02/02/19 for left foot wound, right foot wound, poss. gangrene. Chief Complaint: [] Objective Temp Pulse Resp BP Pulse Ox 97.0 F 88 20 96/60 100 02/04/19 16:00 02/04/19 14:22 02/04/19 16:16 02/04/19 16:10 02/04/19 14:22 CHF ( Third spacing ), CKD, PNA, Sepsis, Cardiogenic shock on pressors / diuretics Multiple chronic wounds BLE and skin tears both UE. Black great toe Left foot unchanged. - Additional Data Intake & Output - Last 24 hours: Intake & Output 02/02/19 02/03/19 02/04/19 02/05/19 05:59 05:59 05:59 05:59 Intake Total 1627 3365 1409 Output Total 521 389 240 Balance 1106 2976 1169 Weight 183 lb 185 lb - Labs 02/04/19 04:07 02/04/19 04:07 Diabetes panel 02/04/19 Range/Units 04:07 Sodium 130 L (133-145) mmol/L Potassium 4.4 (3.3-5.1) mmol/L Chloride 96 (96-108) mmol/L Carbon Dioxide 23 (22-30) mmol/L BUN 45 H (8-23) mg/dl Creatinine 1.7 H (0.7-1.2) mg/dl Glucose 135 H (70-105) mg/dL Calcium 7.9 L (8.6-10.4) mg/dl AST 31 (0-37) U/l ALT 144 H (0-40) U/l Alkaline Phosphatase 93 (39-117) U/L Total Protein 5.4 L (5.9-8.4) gm/dL Albumin 2.6 L (3.2-5.2) gm/dL Triglycerides 42 (<150) mg/dl Calcium panel 02/04/19 Range/Units 04:07 Calcium 7.9 L (8.6-10.4) mg/dl Phosphorus 4.1 (2.7-4.5) mg/dL Albumin 2.6 L (3.2-5.2) gm/dL Pituitary panel 02/04/19 Range/Units 04:07 Sodium 130 L (133-145) mmol/L Potassium 4.4 (3.3-5.1) mmol/L Chloride 96 (96-108) mmol/L Carbon Dioxide 23 (22-30) mmol/L BUN 45 H (8-23) mg/dl Creatinine 1.7 H (0.7-1.2) mg/dl Glucose 135 H (70-105) mg/dL Calcium 7.9 L (8.6-10.4) mg/dl Adrenal panel 02/04/19 Range/Units 04:07 Sodium 130 L (133-145) mmol/L Potassium 4.4 (3.3-5.1) mmol/L Chloride 96 (96-108) mmol/L Carbon Dioxide 23 (22-30) mmol/L BUN 45 H (8-23) mg/dl Creatinine 1.7 H (0.7-1.2) mg/dl Glucose 135 H (70-105) mg/dL Calcium 7.9 L (8.6-10.4) mg/dl Total Bilirubin 1.4 H (0.0-1.0) mg/dL AST 31 (0-37) U/l ALT 144 H (0-40) U/l Alkaline Phosphatase 93 (39-117) U/L Total Protein 5.4 L (5.9-8.4) gm/dL Albumin 2.6 L (3.2-5.2) gm/dL Assessment and Plan (1) Dry gangrene Status: Chronic Current Visit: Yes (2) Hyperglycemia due to type 2 diabetes mellitus Status: Acute Current Visit: No (3) Fecal impaction in rectum Status: Suspected Current Visit: No (4) Constipation Status: Chronic Current Visit: No (5) Knee effusion, right Status: Chronic Current Visit: No (6) Complication of skin graft Status: Acute Current Visit: No (7) CHF (congestive heart failure) Status: Acute Current Visit: Yes - Time Spent With Patient Total time spent is greater than 50% in coordination of care (as documented) at patient's floor/unit and/or counseling patient: Assessment: Multiple organ dysfunction persists. H/O cardiogenic shock and acute on Chronic renal failure. DM, PAD Chronic wounds. BLE and Both UE. Plan: Plans for transfer to tertiary hospital in [place] noted. Continue on going wound care. Spoke with family members. 15 - 24 minutes
[2019-02-05] MEDS ORDERED: DIGOXIN 125 MCG TABLET PO SCH (14:00)
== END 2019-02-04 18:05 | disposition short-term general hospital (02) | DRG 871 ==
LOC: ED 10:53 → ICU 15:40
PROVIDERS: ADMIT Internal Medicine; ATTEND Internal Medicine